=== PATIENT | female | born 1995 | race Caucasian/White ===

== ENCOUNTER → 2023-02-14 09:12 | Outpatient (CLI) | payer BC, SELFPAY ==
[2023-02-15 09:23] LABS: Progesterone 9.4 ng/mL (.)
== END ==
PROVIDERS: PCP Nurse Practitioner Family; Visit Provider Obstetrics & Gynecology
DX: Z34.91 Encounter for supervision of normal pregnancy, unspecified, first trimester (principal); Z3A.09 9 weeks gestation of pregnancy
CPT/HCPCS: 36415; 84144; 84702

== ENCOUNTER → 2023-02-21 15:20 | Outpatient (CLI) | payer BC, SELFPAY ==
[2023-02-21 16:26] LABS: Basophils % 0.1 % (0.1-2.0); Eosinophils # 0.2 K/mm3 (0.0-0.4); Eosinophils % 1.5 % (0.1-12.0); Hematocrit 38.3 % (37.0-47.0); Hemoglobin 12.1 g/dL (12.2-16.2); Lymphocytes # 2.2 K/mm3 (0.7-4.5); Lymphocytes % 19.5 % (10-50); Mean Corpuscular HGB Conc 31.5 g/dL (31.8-35.4); Mean Corpuscular Volume 82.5 fl (81-99); Mean Platelet Volume 7.3 fl (7.4-10.4); Monocytes # 0.6 K/mm3 (0.1-1.0); Monocytes % 4.8 % (1.7-9.3); Neutrophils # 8.4 K/mm3 (1.8-7.8); Platelet Count 280 K/mm3 (142-424); Red Blood Count 4.65 M/mm3 (4.20-5.40); Red Cell Distribution Width 14.3 % (11.5-17.5); White Blood Count 11.4 K/mm3 (4.8-10.8)
[2023-02-23 12:50] LABS: Rapid Plasma Reagin Ab Titer Non Reactive (NonRea<1:1)
[2023-03-03 12:09] LABS: HIV Screen 4th Generation wRfx Non Reactive; Hepatitis B Surface Antigen Negative; Hepatitis C Antibody Non Reactive
== END ==
PROVIDERS: PCP Nurse Practitioner Family; Visit Provider Obstetrics & Gynecology
DX: Z34.91 Encounter for supervision of normal pregnancy, unspecified, first trimester (principal); Z3A.10 10 weeks gestation of pregnancy
CPT/HCPCS: 36415; 85025; 86593; 86703; 86762; 86850; 87086; 87340; 87380; G0432

== ENCOUNTER → 2023-02-21 23:12 | Outpatient (CLI) | payer BC, SELFPAY | PROVIDERS: PCP Nurse Practitioner Family; Visit Provider Obstetrics & Gynecology | DX: Z34.91 Encounter for supervision of normal pregnancy, unspecified, first trimester (principal) ==

== ENCOUNTER → 2023-03-24 07:54 | Outpatient (CLI) | payer BC, SELFPAY ==
[2023-03-24 18:13] LABS: Collection Time,Urine 24 hours
[2023-03-24 18:14] LABS: Creatinine 24 Hour,Urine 903 mg/24hr (630-2500); Total Volume,Urine 2100 mL (600-1600)
[2023-03-24 18:16] LABS: Patient Height,Urine 61 inches
[2023-03-24 18:57] LABS: Total Protein 24 Hour,Urine 315 mg/24 hr (40-90)
[2023-03-24 18:58] LABS: Creatinine,Urine Random 43 mg/dL (Not Estab.)
== END ==
PROVIDERS: PCP Nurse Practitioner Family; Visit Provider Obstetrics & Gynecology
DX: O10.919 Unspecified pre-existing hypertension complicating pregnancy, unspecified trimester (principal); Z3A.14 14 weeks gestation of pregnancy
CPT/HCPCS: 82575; 84155

== ENCOUNTER → 2023-03-25 07:52 | Outpatient (CLI) | payer BC, SELFPAY | PROVIDERS: PCP Nurse Practitioner Family; Visit Provider Obstetrics & Gynecology | DX: O10.919 Unspecified pre-existing hypertension complicating pregnancy, unspecified trimester (principal) ==

== ENCOUNTER → 2023-05-02 12:48 | Outpatient (CLI) | payer BC, SELFPAY ==
--- NOTE | 2023-05-02 12:48 | US_ITS ---
PROCEDURE: US OB /MATERNAL DETAIL CLINICAL INDICATION: 20 week anatomy scan COMPARISON: No exams were available for comparison FINDINGS: Transabdominal sonographic images of the pelvis were obtained. From her established due date she is 20 weeks 2 days. Single viable intrauterine gestation. Cephalic position. Placenta: Posteriorplacenta grade 1. There is an average amount of fluid. MVP 7.27 cm. The cervix appears satisfactory. Closed and measuring 3.8 cm in length. Complete survey performed and was unremarkable on the submitted images as in PACS. No discrete anomalies identified on survey imaging by technologist. Active fetus. Three-vessel cord with satisfactory umbilical cord insertion. 4- chamber heart noted. Situs, aortic arch, LVOT, RVOT, three-vessel view appear normal. Survey of brain & ventricles Unremarkable. Thalamus, cerebellum, cisterna magna, choroid plexus appear normal. Face and neck survey unremarkable. Profile, nasion, lips and nose appeared normal. Diaphragm and chest views unremarkable. Abdomen: Both kidneys noted and unremarkable. Stomach and bladder noted and satisfactory. Spine: Survey of the spine satisfactory with no anomalies identified nor imaged. Cervical, thoracic and lower spine appear normal. Both arms and legs noted. Amniotic Fluid: Adequate. Measurements: Average ultrasound age 20weeks 3days. Estimated due date by ultrasound age 0409/16/2023. Estimated weight 346g BPD = 20weeks 3days HC = 20weeks 1day AC = 20weeks 4days FL = 20weeks 1day Growth Percentile= 47 Heart Rate = 158bpm Cerebellum = 19weeks 6days Humerus = 20weeks 0 days HC/AC is 1.15 FL/BPD is 0.68 FL/AC is 0.21 IMPRESSION: 1. Viable fetus in the cephalic presentation with a posterior placenta grade 1. 2. The fluid is within normal limits. 3. Anatomical scan appears normal. 4. biometry is consistent with the dates. Dictated by: Yves Pascual MD 05/04/2023 12:04 Yves Pascual MD in [place] 05/04/2023 12:04
== END ==
LOC: RAD 12:48
PROVIDERS: PCP Nurse Practitioner Family; Visit Provider Obstetrics & Gynecology
DX: Z34.92 Encounter for supervision of normal pregnancy, unspecified, second trimester (principal); Z3A.20 20 weeks gestation of pregnancy
CPT/HCPCS: 76811

== ENCOUNTER → 2023-06-13 10:22 | Outpatient (CLI) | payer BC, SELFPAY ==
[2023-06-13 10:56] LABS: Eosinophils # 0.1 K/mm3 (0.0-0.4); Eosinophils % 0.7 % (0.1-12.0); Hematocrit 32.9 % (37.0-47.0); Hemoglobin 11.3 g/dL (12.2-16.2); Mean Corpuscular HGB Conc 34.2 g/dL (31.8-35.4); Mean Corpuscular Hemoglobin 26.5 pg (27.0-31.2); Mean Corpuscular Volume 77.5 fl (81-99); Mean Platelet Volume 7.9 fl (7.4-10.4); Monocytes # 0.6 K/mm3 (0.1-1.0); Monocytes % 4.4 % (1.7-9.3); Neutrophils # 10.3 K/mm3 (1.8-7.8); Neutrophils % 79.8 % (37.0-80.0); Platelet Count 245 K/mm3 (142-424); Red Blood Count 4.24 M/mm3 (4.20-5.40); Red Cell Distribution Width 15.4 % (11.5-17.5)
[2023-06-13 11:01] LABS: Glucose,Fasting 130 mg/dl (74-100)
[2023-06-13 12:17] LABS: Glucose 1 Hour 173 mg/dL (74-100)
== END ==
LOC: LAB 10:23
PROVIDERS: PCP Nurse Practitioner Family; Visit Provider Obstetrics & Gynecology
DX: Z34.92 Encounter for supervision of normal pregnancy, unspecified, second trimester (principal); Z3A.25 25 weeks gestation of pregnancy
CPT/HCPCS: 82951; 85025

== ENCOUNTER 2023-06-20 08:26 | Outpatient (CLI) | payer BC, SELFPAY ==
[2023-06-20 08:55] LABS: Glucose,Fasting 104 mg/dl (74-100)
[2023-06-20 10:17] LABS: Glucose 1 Hour 212 mg/dL (74-100)
[2023-06-20 11:17] LABS: Glucose 2 Hour 178 mg/dL (74-100)
[2023-06-20 13:01] LABS: Glucose 3 Hour 135 mg/dL (74-100)
== END 2023-06-20 23:59 ==
LOC: LAB 08:27
PROVIDERS: PCP Nurse Practitioner Family; Visit Provider Obstetrics & Gynecology
DX: Z34.92 Encounter for supervision of normal pregnancy, unspecified, second trimester (principal)
CPT/HCPCS: 36415; 82951

== ENCOUNTER 2023-07-01 09:01 | Emergency (ER) | payer BC, SELFPAY ==
[2023-07-01 09:10] VITALS: BP 143/88; PULSE 94; RESP 22; TEMP 36.8; O2SAT 99; BMI 53.3
--- NOTE | 2023-07-01 09:17 | XR_ITS ---
FINAL REPORT CLINICAL HISTORY: fall yesterday. injury to greater toe. FINDINGS: 3 views of the right foot were obtained. There is no acute fracture or dislocation. The joint spaces are intact. The soft tissues are unremarkable. IMPRESSION: No acute process. Reviewed, Interpreted and Dictated by Peter Harvey III, MD Transcribed by Silvano Pickard Authenticated and [facility]
--- NOTE | 2023-07-01 09:42 | EXP.UTC ---
Discharge Plan Disposition Patient Disposition: Home, Self-Care Condition: Good Prescriptions Prescriptions: No Action Gummies 400 mcg-35 mg- 25 mg-5 mg tablet,chewable 1 tab PO DAILY levocetirizine 5 mg tablet 5 mg PO HS aspirin 81 mg tablet,delayed release (DR/EC) 81 mg PO DAILY (DME) blood-glucose meter [Accu-Chek Guide Glucose Meter] Misc See Rx Instructions .Route Qty: 1 0RF Rx Instructions: As directed (DME) Accu-Chek Guide test strips Strip See Rx Instructions .Route Qty: 100 0RF Rx Instructions: Test 4 times a day (DME) lancets [Accu-Chek Softclix Lancets] Misc See Rx Instructions .Route Qty: 200 0RF Rx Instructions: test 4 times a day ferrous sulfate [iron] 325 mg (65 mg iron) Tablet 325 mg PO DAILY Trelegy Ellipta 200-62.5-25 mcg blister with device 1 ea inhalation DAILY Patient Comments: INHALE 1 PUFF BY MOUTH DIRECTED ONCE A DAY Referrals Follow up/Referrals: aMdai Royal DPM [Staff Physician] - See instructions Sol Mendoza APRN [Primary Care Provider] - See instructions Activity Restrictions/Add. Instructions Additional Instructions/Restrictions: *RICE, Rest the extremity, Ice 15-20 minutes 3-4 times daily, Compress- wear the pau wrap as discussed as much as possible to help reduce swelling and pain, Elevate the extremity when at rest *eloy tape and post op shoe is for support and help control swelling, Be sure that is not to tight but not to loose either *Elevate when resting? Tylenol for pain if your OBGYN has said that you can take it Immediately follow up with your family doctor for new or worsening of symptoms, or no noticeable improvement over the next 3-5 days Clinical Impressions Clinical Impression: Contusion of toe Qualifiers: Encounter type: initial encounter Toe: great toe Damage to nail status: without damage Laterality: right Qualified Code(s): S90.111A - Contusion of right great toe without damage to nail, initial encounter Instructions Patient Instructions: How To Perform RICE (Rest, Ice, Compress, Elevate), How to Eloy Tape Discharge ED Provider: Julia Neal [facility] [place] General Stated complaint: right foot pain had a fall Mode of Arrival: Ambulatory Source of Information: Patient Limitations: No Limitations Time Seen by Provider: 07/01/23 09:15 Description of Symptoms (Recalled from Triage Doc. by RN): PATIENT STATES SHE SLIPPED AND FELL YESTERDAY AND THINKS SHE MAY HAVE BROKEN A TOE ON HER RIGHT FOOT HEENT Symptoms (Recalled from RN notes): No Resp Symptoms (Recalled from RN notes): No Skin Symptoms (Recalled from RN notes): No MS Symptoms (Recalled from RN notes): Yes Functional Status (Recalled from RN notes): WNL History of Present Illness Provider Complaint: Patient states that she is 7mths OB and she slipped yesterday and hit her right great toe against a brick wall States that since then she has been having pain, swelling and bruising to her right great toe and came in this morning wanting to get an xray to see if it is broken Denies any other injury Related Data Home Medications Medication Instructions Recorded Confirmed PNV 153-FA 400 mcg-om3 35 mg-dha 1 tab PO DAILY 02/21/23 07/01/23 25 mg-epa 5 mg-fish oil chew tablet ( Gummies) levocetirizine 5 mg tablet 5 mg PO HS 04/11/23 07/01/23 aspirin 81 mg tablet,delayed 81 mg PO DAILY 05/06/23 07/01/23 release ferrous sulfate 325 mg (65 mg 325 mg PO DAILY 07/01/23 07/01/23 iron) tablet (iron) fluticasone fur. 200 mcg-umeclid 1 ea inhalation DAILY 07/01/23 07/01/23 62.5 mcg-vilant 25 mcg inhalat.powder (Trelegy Ellipta) Previous Rx's Medication Instructions Recorded blood-glucose meter (Accu-Chek #1 ea 06/23/23 Guide Glucose Meter) blood sugar diagnostic (Accu-Chek #100 ea 06/25/23 Guide test strips) lancets (Accu-Chek Softclix #200 ea 06/25/23 Lancets) Allergies Allergy/AdvReac Type Severity Reaction Status Date / Time No Known Allergies Allergy Verified 07/01/23 09:42 Worker's Comp Is this a Worker's Comp case?: No [facility] Disclaimer: The information contained in this section may have been updated after the patient was seen, as this information can be updated by other users. Medical History Asthma Chronic hypertension affecting Surgical History History of wisdom tooth extraction Hx of tonsillectomy Family History Grandmother Cancer Ovarian Father Hypertension Cancer Colon Social History Smoking Status: Never smoker alcohol intake: current substance use type: denies use current occupational status: employed Travel in the last 8 weeks: None ROS Obtained: Yes All systems reviewed & no additional complaints except as documented and Yes Systems reviewed as appropriate & no additional complaints except as documented Constitutional Constitutional: Reports system reviewed and no additional complaints, except as documented and Reports as per HPI Respiratory Respiratory: Reports system reviewed and no additional complaints, except as documented and Reports as per HPI Gastrointestinal Gastrointestingal: Reports system reviewed and no additional complaints, except as documented and as per HPI Musculoskeletal Musculoskeletal: Reports system reviewed and no additional complaints, except as documented and Reports as per HPI Comments: swelling, bruising and pain to right great toe Physical Exam General General appearance: alert and in no apparent distress Respiratory Respiratory exam: Present normal lung sounds bilaterally; Absent respiratory distress or wheezes Cardiovascular Cardiovascular exam: Present regular rate, normal rhythm and normal heart sounds Expanded Lower Extremity Exam Right: Foot/toe exam: Present tenderness, swelling and ecchymosis Top foot image: 1. bruising and mild swelling noted Gait: observed and normal Neurological Exam Neurological exam: Present alert, oriented X3 and normal gait Medical Decision Making Ahsan Inquiry Pt receiving controlled substance: No Ahsan was queried for this patient: No Vital Signs: 07/01/23 09:10 Temperature 98.2 F Temperature Source Oral Pulse Rate [Left Brachial] 94 H Respiratory Rate 22 Blood Pressure [Left Arm] 143/88 H Blood Pressure Mean [Left Arm] 106 Blood Pressure Source [Left Arm] Automatic Cuff Blood Pressure Position [Left Arm] Sitting 02 Sat by Pulse Oximetry 99 Oxygen Delivery Method Room Air Orders (Tests/Meds): ORDERS Category Date Time Status Foot XR right minimum 3 views [XR foot RT min 3V] Stat Exams 07/01/23 09:17 Ordered Radiology Data #1: Image(s): Foot/Toes Image Reviewed: Yes I reviewed the patient's radiology image Preliminary Findings: Normal/NAD Medical Decision Narrative: Shaheed is 7mths OB requesting xray of right foot after hitting her right great toe against a brick wall yesterday Patient educated on risks associated with exposure to radiation to unborn child and and she is still requesting xray and to be shielded understands risks and still wants to do xray Procedures Orthopedic Splinting/Casting Injury #1: Side: right Lower Extremity Injury Location: toe Lower Extremity Immobilizer: post-op shoe, eloy tape and applied by nurse/dr carranza Post Cast/Splinting Neuro Status: intact and no change Post Cast/Splinting Vasc Status: intact and no change
[2023-07-01 09:56] VITALS: BP 143/88; PULSE 94; RESP 22; TEMP 36.8; O2SAT 99
--- NOTE | 2023-07-01 10:04 | PC.NURSE ---
RIGHT GREAT TOE LYDIA-TAPED TO 4TH TOE AND POST-OP SHOE APPLIED
== END 2023-07-01 10:08 | disposition home or self-care (01) ==
PROVIDERS: Emergency Provider Nurse Practitioner; PCP Nurse Practitioner Family
DX: O26.893 Other specified pregnancy related conditions, third trimester (principal); S90.111A Contusion of right great toe without damage to nail, initial encounter; Z3A.29 29 weeks gestation of pregnancy; W23.2XXA Caught, crushed, jammed or pinched between a moving and stationary object, initial encounter
CPT/HCPCS: 73630; 99204; 99212; G0463

== ENCOUNTER 2023-07-11 15:08 | Outpatient (CLI) | payer BC, SELFPAY ==
[2023-07-11 15:33] LABS: Basophils # 0.1 K/mm3 (0-0.2); Basophils % 0.4 % (0.1-2.0); Eosinophils # 0.1 K/mm3 (0.0-0.4); Eosinophils % 0.6 % (0.1-12.0); Hematocrit 33.6 % (37.0-47.0); Hemoglobin 11.3 g/dL (12.2-16.2); Lymphocytes # 2.3 K/mm3 (0.7-4.5); Mean Corpuscular HGB Conc 33.7 g/dL (31.8-35.4); Mean Corpuscular Volume 77.2 fl (81-99); Mean Platelet Volume 7.8 fl (7.4-10.4); Monocytes # 0.6 K/mm3 (0.1-1.0); Monocytes % 4.8 % (1.7-9.3); Neutrophils # 9.9 K/mm3 (1.8-7.8); Neutrophils % 76.2 % (37.0-80.0); Platelet Count 266 K/mm3 (142-424); Red Blood Count 4.36 M/mm3 (4.20-5.40); Red Cell Distribution Width 15.6 % (11.5-17.5)
[2023-07-11 15:41] LABS: Fibrinogen 576 mg/dL (229.9-363.5); Prothrombin Time 10.8 seconds (10.1-12.5)
[2023-07-11 16:49] LABS: Alanine Aminotransferase 27 U/L (12-78); Anion Gap 11.9 mEq/L (5-15); Aspartate Amino Transferase 27 U/L (14-36); Blood Urea Nitrogen 6 mg/dl (7-17); Calcium 9.1 mg/dl (8.4-10.2); Carbon Dioxide 22 mmol/L (22.0-30.0); Chloride 107 mmol/L (98-107); Estimated Glomerular Filt Rate 146 ml/min (>60); GFR (African American) 177 ML/MIN (>60); Glucose 111 mg/dl (74-100); Potassium 3.9 mmoL/L (3.5-5.1); Sodium 137 mmol/L (136-145); Uric Acid 4.3 mg/dl (2.5-6.2)
== END 2023-07-11 23:59 ==
LOC: LAB 15:09
PROVIDERS: PCP Nurse Practitioner Family; Visit Provider Obstetrics & Gynecology
DX: O24.419 Gestational diabetes mellitus in pregnancy, unspecified control (principal)
CPT/HCPCS: 36415; 80048; 84450; 84460; 84550; 85025; 85384; 85610; 85730

== ENCOUNTER 2023-07-18 12:39 | Outpatient (CLI) | payer BC, SELFPAY ==
--- NOTE | 2023-07-18 12:40 | US_ITS ---
PROCEDURE: US OB BIOPHYSICAL PROFILE CLINICAL INDICATION: Chronic Hypertension affecting COMPARISON: No exams were available for comparison FINDINGS: Transabdominal sonographic images of the uterus were obtained. From her established due date she is 31weeks 2days. The following parameters are obtained: Viable Fetus in the cephalic presentation with a fundal placenta grade 1. Average ultrasound age is 31weeks 5days Estimated weight 1,779g, 3 lb 15 oz. Cervix measures 3.6 cm Measurements: heart Rate = 150bpm BPD = 31weeks 5days HC = 32weeks 1day AC = 31weeks 3days FL = 31weeks 3days HC/AC is 1.07 FL/BPD is 0.76 FL/AC is 0.22 45 percentile Amniotic fluid index: 11.71cm, MVP 4.19 cm. Qualitative AFV:2 Breathing movements: 2 Gross Body Movements: 2 Tone: 2 Biophysical profile score: 8 No obvious anomalies evident.Kidneys, diaphragm, four-chamber heart, profile, nasion, three-vessel cord appear normal. IMPRESSION: 1. Viable fetus in the cephalic presentation with a fundal placenta grade 1. 2. The fluid is within normal limits with an amniotic fluid index of 11.71 cm, MVP 4.19 cm. 3. Biophysical profile 01/21 with good breathing movement and movement seen. 4. There has been good interval growth with the fetus currently 45th percentile. Dictated by: Yves Pascual MD 07/19/2023 06:39 Yves Pascual MD in [place] 07/19/2023 06:39
== END 2023-07-18 23:59 ==
LOC: RAD 12:40
PROVIDERS: PCP Nurse Practitioner Family; Visit Provider Obstetrics & Gynecology
DX: O10.913 Unspecified pre-existing hypertension complicating pregnancy, third trimester (principal); Z3A.31 31 weeks gestation of pregnancy
CPT/HCPCS: 76816; 76819

== ENCOUNTER 2023-07-30 13:57 | Outpatient (CLI) | payer BC, SELFPAY ==
--- NOTE | 2023-07-30 13:57 | US_ITS ---
PROCEDURE: US OB BIOPHYSICAL PROFILE CLINICAL INDICATION: BPP/ Chronic hypertension affecting COMPARISON: No exams were available for comparison FINDINGS: Transabdominal sonographic images of the uterus were obtained. From her established due date she is 33weeks 0 days. The following parameters are obtained: Viable Fetus in the cephalic presentation with a lateral posterior placenta grade 2. Cervix measures 3.8 cm. Measurements: heart Rate = 139bpm Amniotic fluid index: 11.08cm, MVP 4.8 cm. Qualitative AFV:2 Breathing movements: 2 Gross Body Movements: 2 Tone: 2 Biophysical profile score: 8 No obvious anomalies evident.Kidneys, profile, nasion, four-chamber heart, three-vessel cord appear normal. IMPRESSION: 1. Viable fetus in the cephalic presentation with a lateral posterior placenta grade 2. 2. The fluid is within normal limits with an amniotic fluid index of 11.08 cm, MVP 4.8 cm. 3. Biophysical profile is 8/8 with good breathing movement and movement seen. 4. Limited anatomical scan appears normal. Dictated by: Yves Pascual MD 07/30/2023 15:35 Yves Pascual MD in [place] 07/30/2023 15:35
== END 2023-07-30 23:59 ==
LOC: RAD 13:57
PROVIDERS: PCP Nurse Practitioner Family; Visit Provider Obstetrics & Gynecology
DX: O10.913 Unspecified pre-existing hypertension complicating pregnancy, third trimester (principal); Z3A.33 33 weeks gestation of pregnancy
CPT/HCPCS: 76819

== ENCOUNTER 2023-08-05 02:50 | Inpatient (IN) | payer BC, SELFPAY ==
[2023-08-05 01:44] VITALS: BMI 51.3
[2023-08-05 02:00] VITALS: BP 145/79; PULSE 101; RESP 18; TEMP 37.1; O2SAT 96; BMI 51.3
[2023-08-05 02:09] LABS: Appearance,Urine CLEAR (Clear); Bilirubin,Urine Negative (Negative); Blood, Urine 2+ (Negative); Color,Urine YELLOW (Yellow); Glucose,Urine (UA) Negative (Negative); Ketones,Urine 2+ (Negative); Leukocyte Esterase,Urine 2+ (Negative); Microscopic, Urine URINE MICROSCOPIC (MICROSCOPIC); Nitrate,Urine Negative (Negative); Protein,Urine Negative (Negative); Urobilinogen,Urine 0.2 EU/dl (0.2)
[2023-08-05] MEDS: NIFEdipine 10MG CAPSULE 10 MG PO (02:16)
[2023-08-05 02:21] LABS: Bacteria,Urine 1+ /lpf
[2023-08-05 02:32] LABS: Amphetamine/Metha Screen,Urine Negative ng/ml (<1000); Barbiturates Screen,Urine Negative ng/ml (<200)
[2023-08-05 02:33] LABS: Benzodiazepines Screen,Urine Negative ng/ml (<200)
[2023-08-05 02:34] LABS: Cannabinoid Screen,Urine Negative ng/ml (<50)
[2023-08-05 02:35] LABS: Cocaine Screen,Urine Negative ng/ml (<300); Methadone Screen,Urine Negative ng/ml (<300)
[2023-08-05 02:36] LABS: Opiate Screen,Urine Negative ng/ml (<300); Phencyclidine Screen,Urine Negative ng/ml (<25)
[2023-08-05] MEDS: BETAMETHASONE ACET/PHOS 6MG/ML 5ML MDV 12 MG IM (02:36)
[2023-08-05] MEDS: LACTATED RINGERS 1000ML 1,000 ML 999 ML IV (02:37)
[2023-08-05 02:40] LABS: Fetal Membrane Rupture (Rapid) Positive (Negative)
[2023-08-05] MEDS: BUTORPHANOL TARTRATE 1 MG/ML VIAL IV (02:50)
[2023-08-05] MEDS: AMPICILLIN SODIUM 2 GM in 0.9 % SODIUM CHLORIDE 100 ML IV (02:59)
--- NOTE | 2023-08-05 03:08 | P.HPDS_ITS ---
General Admission date:: 08/05/23 Discharge date: 08/05/23 *Admission Date: 08/05/23 *Chief complaint: painful uterine contractions *History of present illness: Mrs Drea Peterson is a 27 yo at 33w6d, by LMP and confirmed by 10 week ultrasound, who presents to [facility] Labor and Delivery with complaint of regular, painful contractions. She admits contractions started around lunchtime yesterday. She initially thought they were [place] contractions. However, as the evening progressed contractions became more painful. She arrived to L&D around 0145 this morning. Upon arrival to L&D, cervical exam was 3/60/-3 posterior. NST was category 2, moderate variability, no accelerations, + intermittent variable decelerations. [place] q 2-3 minutes. While in triage aroound 0200 she started leaking fluid. Amnisure was positive. complicated by CHTN on Labetalol 200 mg BID, GDMA2 on insulin glargine 20 mg nightly at bedtime, asthma well controlled. History of x 1 at 37 weeks. She states she underwent induction of labor at 37 weeks for GHTN. [facility] Disclaimer: The information contained in this section may have been updated after the patient was seen, as this information can be updated by other users. Medical History (Updated 08/05/23 @ 03:30 by Nevaeh Bragg DO) Asthma Chronic hypertension affecting Maternal obesity affecting , antepartum with 33 completed weeks gestation labor in third trimester SROM (spontaneous rupture of membranes) Surgical History History of wisdom tooth extraction Hx of tonsillectomy Family History Grandmother Cancer Ovarian Father Hypertension Cancer Colon Social History Smoking Status: Never smoker alcohol intake: current substance use type: denies use current occupational status: employed Travel in the last 8 weeks: None Review of Systems Review of Systems Review of systems:: pertinent systems reviewed and negative unless documented below *Genitourinary Comments: + painful contractions Exam Data for Last 24 hours Vital signs and Labs for Last 24 Hours: Temp Pulse Resp BP Pulse Ox O2 Del Method 98.8 F 101 H 18 145/79 H 96 Room Air 08/05/23 02:00 08/05/23 02:00 08/05/23 02:00 08/05/23 02:00 08/05/23 02:00 08/05/23 02:00 Laboratory Results - last 24 hr 08/05/23 01:49: Urine Color Yellow, Urine Appearance Clear, Urine pH 7.0, Ur Specific [place] 1.010, Urine Protein Negative, Urine Glucose (UA) Negative, Urine Ketones 2+, Urine Blood 2+, Urine Nitrate Negative, Urine Bilirubin Negative, Urine Urobilinogen 0.2, Ur Leukocyte Esterase 2+ A, Urine RBC 5-10, Urine WBC 10-20, Ur Squamous Epith Cells 3-5, Urine Bacteria 1+, Urine Opiates Screen Negative, Urine Methadone Screen Negative, Ur Barbituates Screen Negative, Ur Phencyclidine Scrn Negative, Ur Amphetamines Screen Negative, U Benzodiazepines Scrn Negative, Urine Cocaine Screen Negative, U Marijuana (THC) Screen Negative 08/05/23 02:24: Membrane Rupture Positive A I & O for Last 24 hours: Intake & Output 08/02/23 08/03/23 08/04/23 08/05/23 23:59 23:59 23:59 23:59 Weight 272 lb Constitutional Constitutional: no acute distress, obese and cooperative *Routine HEENT Exam Head: Present normocephalic and atraumatic Eye: Absent conjunctivae pink ENT: Present mucous membranes moist *Routine Neck Exam Neck: Present full ROM *Routine Respiratory Exam Respiratory: Present CTA bilaterally and normal respiratory effort *Routine Cardiovascular Exam Cardiovascular: Present RRR *Routine Abdominal Exam Abdominal: Present soft (Gravid); Absent tenderness *Routine Rectal Exam Rectal:: deferred *Routine Genitalia Exam Genitalia:: normal female *Routine Extremities Exam Extremities: Present full ROM; Absent edema or calf tenderness *Routine Neurological Exam Neurological: Present alert, moving all extremities and normal speech Routine Psychiatric Exam Psychiatric: Present normal affect and cooperative Meds Home Medications and Allergies Home Medications Medication Instructions Recorded Confirmed Type PNV 153-FA 400 mcg-om3 35 mg-dha 1 tab PO DAILY 02/21/23 07/30/23 History 25 mg-epa 5 mg-fish oil chew tablet ( Gummies) levocetirizine 5 mg tablet 5 mg PO HS 04/11/23 07/30/23 History aspirin 81 mg tablet,delayed 81 mg PO DAILY 05/06/23 07/30/23 History release blood-glucose meter (Accu-Chek #1 ea 06/23/23 07/30/23 Rx Guide Glucose Meter) ferrous sulfate 325 mg (65 mg 325 mg PO DAILY 07/01/23 07/30/23 History iron) tablet (iron) fluticasone fur. 200 mcg-umeclid 1 ea inhalation DAILY 07/01/23 07/30/23 History 62.5 mcg-vilant 25 mcg inhalat.powder (Trelegy Ellipta) blood sugar diagnostic (Accu-Chek #100 ea 07/11/23 07/30/23 Rx Guide test strips) labetalol 200 mg tablet 200 mg PO BID #60 tabs 07/11/23 07/30/23 Rx lancets (Accu-Chek Softclix #200 ea 07/11/23 07/30/23 Rx Lancets) insulin glargine 100 unit/mL (3 15 unit SQ HS 07/18/23 07/30/23 History mL) subcutaneous pen New Prescriptions to Start Prescriptions: Allergies Allergy/AdvReac Type Severity Reaction Status Date / Time No Known Allergies Allergy Verified 07/30/23 15:20 Hospital Course Hospital Course Hospital Course: Mrs Drea Peterson is a 27 yo at 33w6d, by LMP and confirmed by 10 week ultrasound, who presents to [facility] Labor and Delivery with complaint of regular, painful contractions. She admits contractions started around lunchtime yesterday. She initially thought they were [place] contractions. However, as the evening progressed contractions became more painful. She arrived to L&D around 0145 this morning. Upon arrival to L&D, cervical exam was 3/60/-3 posterior. NST was category 2, moderate variability, no accelerations, + intermittent variable decelerations. [place] q 2-3 minutes. While in triage, around 0200, she started leaking fluid. Amnisure was positive. complicated by CHTN on Labetalol 200 mg BID, GDMA2 on insulin glargine 20 mg nightly at bedtime, asthma well controlled. She has had good care. History of x 1 at 37 weeks secondary to induction of labor for GHTN. She was given IV fluid bolus, procardia 10 mg for contractions, Celestone 12 mg and Ampicillin 2 grams. She was also given Stadol 1 mg for pain. Repeat cervical exam /3, soft, posterior. Discussed labor and rupture of membranes with Dr. Knowles at . Dr Knowles accepted transfer. Results Data Completed and Pending Labs on day of discharge: Labs from last 24 hours 08/05/23 08/05/23 02:24 01:49 Urine Color Yellow Urine Appearance Clear Urine pH 7.0 Ur Specific [place] 1.010 Urine Protein Negative Urine Glucose (UA) Negative Urine Ketones 2+ Urine Blood 2+ Urine Nitrate Negative Urine Bilirubin Negative Urine Urobilinogen 0.2 Ur Leukocyte Esterase 2+ A Urine RBC 5-10 Urine WBC 10-20 Ur Squamous Epith Cells 3-5 Urine Bacteria 1+ Membrane Rupture Positive A Urine Opiates Screen Negative Urine Methadone Screen Negative Ur Barbituates Screen Negative Ur Phencyclidine Scrn Negative Ur Amphetamines Screen Negative U Benzodiazepines Scrn Negative Urine Cocaine Screen Negative U Marijuana (THC) Screen Negative DS: Diagnosis Discharge Diagnosis (1) with 33 completed weeks gestation: Status: Acute Code(s): Z3A.33 - 33 weeks gestation of (2) labor in third trimester: Status: Acute Code(s): O60.03 - labor without delivery, third trimester Qualifiers: labor delivery status: without delivery Qualified Code(s): O60.03 - labor without delivery, third trimester (3) SROM (spontaneous rupture of membranes): Status: Acute (4) Chronic hypertension affecting : Status: Acute Code(s): O10.919 - Unspecified pre-existing hypertension complicating , unspecified trimester (5) Gestational diabetes mellitus: Status: Acute Code(s): O24.419 - Gestational diabetes mellitus in , unspecified control Qualifiers: Gestational diabetes mellitus control: insulin-controlled Trimester: third trimester Qualified Code(s): O24.414 - Gestational diabetes mellitus in , insulin controlled (6) Asthma affecting , antepartum: Status: Acute Code(s): O99.519 - Diseases of the respiratory system complicating , unspecified trimester; J45.909 - Unspecified asthma, uncomplicated (7) Maternal obesity affecting , antepartum: Status: Acute Code(s): O99.210 - Obesity complicating , unspecified trimester Qualifiers: Obesity type affecting : unspecified obesity Qualified Code(s): O99.210 - Obesity complicating , unspecified trimester Discharge Plan Disposition Patient Disposition: Xfer Short-Term Hosp Condition: Good Discharge Order Discharge Orders: Discharge Order (Routine); Ordered 08/05/23 Ordered By: Nevaeh Bragg Follow up Plan Prescriptions/Medication Reconciliation: Continued Gummies 400 mcg-35 mg- 25 mg-5 mg tablet,chewable 1 tab PO DAILY levocetirizine 5 mg tablet 5 mg PO HS aspirin 81 mg tablet,delayed release (DR/EC) 81 mg PO DAILY labetalol 200 mg tablet 200 mg PO BID Qty: 60 2RF (DME) Accu-Chek Guide test strips Strip See Rx Instructions .Route Qty: 100 2RF Rx Instructions: Test 4 times a day (DME) lancets [Accu-Chek Softclix Lancets] Misc See Rx Instructions .Route Qty: 200 2RF Rx Instructions: test 4 times a day insulin glargine 100 unit/mL (3 mL) insulin pen 15 unit SQ HS (DME) blood-glucose meter [Accu-Chek Guide Glucose Meter] Misc See Rx Instructions .Route Qty: 1 0RF Rx Instructions: As directed ferrous sulfate [iron] 325 mg (65 mg iron) Tablet 325 mg PO DAILY Trelegy Ellipta 200-62.5-25 mcg blister with device 1 ea inhalation DAILY Patient Comments: INHALE 1 PUFF BY MOUTH DIRECTED ONCE A DAY Problem Reconciliation Problems Reviewed?: Yes Patient Discharge Instructions ACTIVITY: Limited activity DIET: continue same diet Stand Alone Forms: Transfer Record Providers Primary Care Provider: Sol Mendoza Admit Provider: Nevaeh Bragg Attending Provider: Nevaeh Bragg
--- NOTE | 2023-08-05 03:25 | PC.NURSE ---
Active Medications Generic Name Dose Route Start Last Admin Trade Name Sergey PRN Reason Stop Dose Admin Ampicillin Sodium 2 gm/ Sodium 100 mls @ 200 mls/hr 08/05/23 03:00 08/05/23 02:59 Chloride IV 08/05/23 03:29 200 mls/hr ONCE ONE Administration Active Medications Ampicillin Sodium 2 gm/ Sodium (Chloride) 100 mls @ 200 mls/hr IV ONCE ONE Stop: 08/05/23 03:29 Last Admin: 08/05/23 02:59 Dose: 200 mls/hr lactated ringers @999ml/hr Iv once Last Admin: @0237 08/05/2023 Stadol 1mg Iv once Last admin @ 0250 08/05/23 celestone 12mg IM once Last admin @0236 08/05/23 niphedipine 10mg PO once last admin @0216 08/05/23
== END 2023-08-05 03:45 | disposition home or self-care (01) | DRG 832 ==
LOC: OBOUT 02:53 → OB 02:53
PROVIDERS: Admitting Provider Obstetrics & Gynecology; PCP Nurse Practitioner Family; Referring Provider Obstetrics & Gynecology; Visit Provider Obstetrics & Gynecology
DX: O47.03 False labor before 37 completed weeks of gestation, third trimester (principal); O10.913 Unspecified pre-existing hypertension complicating pregnancy, third trimester; Z3A.33 33 weeks gestation of pregnancy; O99.210 Obesity complicating pregnancy, unspecified trimester; O24.414 Gestational diabetes mellitus in pregnancy, insulin controlled
CPT/HCPCS: 59025; 80307; 81001; 84112; 87086; 96365; 96372; G0463; J0290; J0595

== ENCOUNTER 2023-08-14 18:53 | Emergency (ER) | payer BC, SELFPAY ==
--- NOTE | 2023-08-14 18:50 | ECG_ITS ---
APPROVED REPORT Exam: Resting ECG HR:64 bpm ECG Measurements Heart Rate 64 AXES AL 148 P 28 QRSd 106 QRS 52 QT 427 T 29 QTc 437 Conclusion SINUS RHYTHM WITH SINUS ARRHYTHMIA NORMAL ECG UNCONFIRMED REPORT Electronically signed by : Sunny Thomas MD 08/15/2023 19:30:57
--- NOTE | 2023-08-14 18:58 | ED_ITS ---
Discharge Plan Disposition Patient Disposition: Home, Self-Care Condition: Good Prescriptions Prescriptions: No Action labetalol 200 mg tablet 200 mg PO BID Patient Comments: TAKE ONE TABLET BY MOUTH TWICE A DAY fluticasone propionate [Flonase Allergy Relief] 50 mcg/actuation spray,suspension 2 spray INTRANASAL DAILY Patient Comments: [place] 2 spray into both nostrils once a day enoxaparin 40 mg/0.4 mL syringe 40 mg SQ DAILY insulin glargine [Lantus Solostar U-100 Insulin] 100 unit/mL (3 mL) insulin pen 10 unit SQ HS Patient Comments: 10 UNIT (0.1 ML) SUBCUTANEOUSLY AT BEDTIME NIGHTLY levocetirizine 5 mg tablet 5 mg PO DAILY Patient Comments: TAKE 1 TABLET BY MOUTH EVERY DAY Trelegy Ellipta 200-62.5-25 mcg blister with device 1 inh INHALATION DAILY Patient Comments: [place] 1 PUFF BY MOUTH DIRECTED ONCE A DAY Referrals Follow up/Referrals: Provider,Referral, MD [Primary Care Provider] - See instructions Activity Restrictions/Add. Instructions Additional Instructions/Restrictions: Please follow-up with PCP and REGULATORY AFFAIRS COORDINATOR as needed or sooner for worsening or change in symptoms or return to the emergency department Clinical Impressions Clinical Impression: Atypical chest pain Discharge ED Provider: Susana Martin HPI <BASILIO Galindo - Last Filed: 08/14/23 21:29> General Chief Complaint: Chest Pain Stated Complaint: chest pain Time Seen by Provider: 08/14/23 18:58 History of Present Illness HPI narrative: Patient presents for evaluation initially of chest pain . Patient is 9 days status post on twice daily dosing of Lovenox. Patient at baseline has a past medical history of morbid obesity, asthma, hypertension. Patient reports acute onset of left-sided chest pain that does not radiate and is located beneath her chest wall. He does not report radiation of the chest pain shortness of breath nausea vomiting diarrhea hemoptysis hematochezia melena hematemesis. There are no aggravating or relieving factors. She is not currently breast-feeding but is pumping as her child is in the NICU at the [facility]. Related Data Home Medications Medication Instructions Recorded Confirmed enoxaparin 40 mg/0.4 mL 40 mg SQ DAILY 08/14/23 08/14/23 subcutaneous syringe fluticasone fur. 200 mcg-umeclid 1 inh inhalation DAILY 08/14/23 08/14/23 62.5 mcg-vilant 25 mcg inhalat.powder (Trelegy Ellipta) fluticasone propionate 50 2 spray intranasal DAILY 08/14/23 08/14/23 mcg/actuation nasal spray,suspension (Flonase Allergy Relief) insulin glargine 100 unit/mL (3 10 unit SQ HS 08/14/23 08/14/23 mL) subcutaneous pen (Lantus Solostar U-100 Insulin) labetalol 200 mg tablet 200 mg PO BID 08/14/23 08/14/23 levocetirizine 5 mg tablet 5 mg PO DAILY 08/14/23 08/14/23 Allergies Allergy/AdvReac Type Severity Reaction Status Date / Time No Known Allergies Allergy Verified 07/30/23 15:20 PFSH <BASILIO Galindo - Last Filed: 08/14/23 21:29> PFS Disclaimer: The information contained in this section may have been updated after the patient was seen, as this information can be updated by other users. Medical History (Updated 08/14/23 @ 21:24 by BASILIO Galindo) Asthma Chronic hypertension affecting Maternal obesity affecting , antepartum with 33 completed weeks gestation labor in third trimester SROM (spontaneous rupture of membranes) Surgical History History of wisdom tooth extraction Hx of tonsillectomy Family History Grandmother Cancer Ovarian Father Hypertension Cancer Colon Social History Smoking Status: Unknown if ever smoked alcohol intake: current substance use type: denies use current occupational status: employed Travel in the last 8 weeks: None <BASILIO Galindo - Last Filed: 08/14/23 21:29> ROS Obtained: Yes Systems reviewed as appropriate & no additional complaints except as documented Physical Exam <BASILIO Galindo - Last Filed: 08/14/23 21:29> General General appearance: alert and in no apparent distress Head Head exam: atraumatic and normal inspection Eye Eye exam: Present normal appearance, PERRL and EOMI ENT ENT exam: Present normal exam, normal oropharynx and mucous membranes moist Neck Neck exam: Present normal inspection and full ROM; Absent lymphadenopathy Chest Chest inspection: Present normal inspection and symmetric chest wall rise; Absent tenderness, rash or abscess Respiratory Respiratory exam: Present normal lung sounds bilaterally; Absent wheezes or accessory muscle use Cardiovascular Cardiovascular exam: Present regular rate, normal rhythm and normal heart sounds Abdominal Exam Abdominal exam: Present soft, normal bowel sounds and other (Obese. Surgical site is clean dry and intact.); Absent tenderness, guarding or rebound Extremities Exam Extremities exam: Present normal inspection and full ROM; Absent tenderness or calf tenderness Neurological Exam Neurological exam: Present alert, oriented X3 and CN II-XII intact Psychiatric Psychiatric exam: Present normal affect and normal mood Skin Skin exam: Present warm, dry and normal color Lymphatic Lymphatic Findings: no adenopathy HEART Score <BASILIO Galindo - Last Filed: 08/14/23 21:29> HEART Score HEART Score assessment performed?: Yes History (anamnesis): Slightly suspicious ECG: Normal Age: <45 years Risk factors: 1-2 risk factors Troponin: </= normal limit HEART Score: 1 <Susana Martin DO - Last Filed: 08/15/23 00:07> HEART Score HEART Score: 1 Critical Care <BASILIO Galindo - Last Filed: 08/14/23 21:29> Critical Care Time Critical Care Time: No Medical Decision Making <BASILIO Galindo - Last Filed: 08/14/23 21:29> Medical Records Medical records reviewed: Yes I reviewed the patient's medical records. Ahsan Alves Pt receiving controlled substance: No Vital Signs Vital Signs: 08/14/23 19:03 08/14/23 22:18 Temperature 97.0 F L 98.2 F Temperature Source Oral Oral Pulse Rate 73 Pulse Rate [Right Brachial] 75 Respiratory Rate 16 15 Blood Pressure 142/76 H Blood Pressure [Right Arm] 153/62 H Blood Pressure Mean [Right Arm] 92 Blood Pressure Source Automatic Cuff Blood Pressure Source [Right Arm] Automatic Cuff Blood Pressure Position Sitting Blood Pressure Position [Right Arm] Sitting 02 Sat by Pulse Oximetry 98 Oxygen Delivery Method Room Air Room Air Lab Data Lab results reviewed: Yes I reviewed the patient's lab results. Labs: Lab Results 08/14/23 17:39: SARS-CoV-2 (PCR) Not detected, Influenza A Untype (PCR) Not detected, Influenza Type B (PCR) Not detected 08/14/23 18:56: WBC 13.2 H, RBC 4.20, Hgb 11.0 L, Hct 34.3 L, MCV 81.6, MCH 26.1 L, MCHC 32.0, RDW 15.8, Plt Count 362, MPV 7.9, Neut % (Auto) 69.2, Lymph % (Auto) 24.5, [place] % (Auto) 4.6, Eos % (Auto) 1.2, Baso % (Auto) 0.6, Neut # (Auto) 9.2 H, Lymph # (Auto) 3.2, [place] # (Auto) 0.6, Eos # (Auto) 0.2, Baso # (Auto) 0.1, Sodium 139, Potassium 3.9, Chloride 106, Carbon Dioxide 25, Anion Gap 11.9, BUN 16, Creatinine 0.80, Estimated Creat Clear 78, Estimated GFR 85, Est GFR ( Amer) 103, Glucose 89, Calcium 9.2, Magnesium 1.9, Total Bilirubin 0.3, AST 27, ALT 30, Alkaline Phosphatase 141 H, Troponin I < 0.01, Total Protein 6.9, Albumin 3.7, Globulin 3.2, Albumin/Globulin Ratio 1.2, Lipase 78 08/14/23 19:53: PT 11.3, INR 1.05, D-Dimer 0.65 H, Lactate 0.8 08/14/23 21:38: Troponin I < 0.01 08/14/23 18:56 08/14/23 18:56 Response Orders (Tests/Meds): ED MEDICATIONS Discontinued Medications Generic Name Dose Route Start Last Admin Trade Name Freq PRN Reason Stop Dose Admin Acetaminophen 1,000 mg 08/14/23 19:11 08/14/23 19:26 Acetaminophen 1,000mg/100ml Vial IV 08/14/23 19:12 1,000 mg ONCE ONE Administration Lactated Ringer's 1,000 mls @ 999 mls/hr 08/14/23 19:11 08/14/23 19:26 Lactated Ringer's 1000 Ml Bag IV 08/14/23 20:11 999 mls/hr .Q1H1M ONE Administration Iopamidol 75 ml 08/14/23 20:53 08/14/23 20:53 Iopamidol-370 (76%);100ml Bottle IV 08/14/23 20:54 75 ml ONCE ONE Administration Ketorolac Tromethamine 15 mg 08/14/23 19:11 08/14/23 19:26 Ketorolac 30mg/Ml Vial IV 08/14/23 19:12 15 mg ONCE ONE Administration Morphine Sulfate 2 mg 08/14/23 19:11 08/14/23 19:26 Morphine 2mg/Ml Syringe IV 08/14/23 19:12 2 mg ONCE ONE Administration Sodium Chloride 10 ml 08/14/23 20:53 08/14/23 20:53 Sodium Chloride 0.9% 10ml Syr (Rad Only) IV 09/13/23 20:52 10 ml NEEDED PRN Administration Maintain IV Site ORDERS Category Date Time Status CTA Chest [CT angio chest PE protocol] Stat Cat Scan 08/14/23 20:33 Completed Chest XR -- portable [XR chest portable] Stat Exams 08/14/23 19:11 Completed CBC w/Auto Diff [Complete Blood Count Auto Diff] Stat Lab 08/14/23 18:56 Completed CMP [Comprehensive Metabolic Panel] Stat Lab 08/14/23 18:56 Completed D-Dimer Stat Lab 08/14/23 19:53 Completed INR [Prothrombin Time INR] Stat Lab 08/14/23 19:53 Completed Lactic Acid Stat Lab 08/14/23 19:53 Completed Lipase Stat Lab 08/14/23 18:56 Completed Magnesium Stat Lab 08/14/23 18:56 Completed Rapid PCR Covid and Flu A/B Stat Lab 08/14/23 17:39 Completed Trop I [Troponin I] Stat Lab 08/14/23 18:56 Completed Troponin I Q3H Lab 08/14/23 21:38 Completed ECG initial [place] Routine Y 08/14/23 18:50 Completed MDM Narrative Medical Decision Narrative: In summary patient is a 27-year-old female who presents to the emergency department for evaluation of chest pain. Patient is hemodynamically stable upon arrival, afebrile. Physical exam shows a morbidly obese 27-year-old female who is in no acute distress. Evaluation of the superficial chest wall shows no obvious abscess erythema edema tenderness to palpation signs of mastitis. Pain is not reproducible on exam. Auscultation of chest shows clear breath sounds without evidence of adventitious sounds. Cardiovascular is normal to auscultation normal heart sounds no rubs murmurs gallops or thrills. Differential diagnosis includes ACS versus PE versus intestinal source or cause versus bacterial or viral respiratory tract infection. Initial workup will be conducted with hematologic labs CTA PE protocol respiratory swabs. Initial interventions include acetaminophen and Tylenol. Initial workup reviewed by me shows an elevated white count with left shift but negative lactate negative procalcitonin but normal EKG normal chest x-ray and normal troponin. Upon repeat evaluation patient had improvement of her chest pain after ministration of Toradol and acetaminophen. White count is elevated but patient has no evidence of infection and given 9 days not unexpected. My informal interpretation of the CTA PE protocol of her chest shows no evidence of thrombus no acute processes bilateral trace pleural effusions inferiorly. Given this appropriate for discharge home with instructions to follow-up with both her PCP and REGULATORY AFFAIRS COORDINATOR. Patient to return to ER for any worsening or change in her signs or symptoms. Patient verbalized understanding and agreed with plan <Susana Martin, DO - Last Filed: 08/15/23 00:07> Vital Signs Vital Signs: 08/14/23 19:03 08/14/23 22:18 Temperature 97.0 F L 98.2 F Temperature Source Oral Oral Pulse Rate 73 Pulse Rate [Right Brachial] 75 Respiratory Rate 16 15 Blood Pressure 142/76 H Blood Pressure [Right Arm] 153/62 H Blood Pressure Mean [Right Arm] 92 Blood Pressure Source Automatic Cuff Blood Pressure Source [Right Arm] Automatic Cuff Blood Pressure Position Sitting Blood Pressure Position [Right Arm] Sitting 02 Sat by Pulse Oximetry 98 Oxygen Delivery Method Room Air Room Air Lab Data Labs: Lab Results 08/14/23 17:39: SARS-CoV-2 (PCR) Not detected, Influenza A Untype (PCR) Not detected, Influenza Type B (PCR) Not detected 08/14/23 18:56: WBC 13.2 H, RBC 4.20, Hgb 11.0 L, Hct 34.3 L, MCV 81.6, MCH 26.1 L, MCHC 32.0, RDW 15.8, Plt Count 362, MPV 7.9, Neut % (Auto) 69.2, Lymph % (Auto) 24.5, [place] % (Auto) 4.6, Eos % (Auto) 1.2, Baso % (Auto) 0.6, Neut # (Auto) 9.2 H, Lymph # (Auto) 3.2, [place] # (Auto) 0.6, Eos # (Auto) 0.2, Baso # (Auto) 0.1, Sodium 139, Potassium 3.9, Chloride 106, Carbon Dioxide 25, Anion Gap 11.9, BUN 16, Creatinine 0.80, Estimated Creat Clear 78, Estimated GFR 85, Est GFR ( Amer) 103, Glucose 89, Calcium 9.2, Magnesium 1.9, Total Bilirubin 0.3, AST 27, ALT 30, Alkaline Phosphatase 141 H, Troponin I < 0.01, Total Protein 6.9, Albumin 3.7, Globulin 3.2, Albumin/Globulin Ratio 1.2, Lipase 78 08/14/23 19:53: PT 11.3, INR 1.05, D-Dimer 0.65 H, Lactate 0.8 08/14/23 21:38: Troponin I < 0.01 Response Orders (Tests/Meds): ED MEDICATIONS Discontinued Medications Generic Name Dose Route Start Last Admin Trade Name Freq PRN Reason Stop Dose Admin Acetaminophen 1,000 mg 08/14/23 19:11 08/14/23 19:26 Acetaminophen 1,000mg/100ml Vial IV 08/14/23 19:12 1,000 mg ONCE ONE Administration Lactated Ringer's 1,000 mls @ 999 mls/hr 08/14/23 19:11 08/14/23 19:26 Lactated Ringer's 1000 Ml Bag IV 08/14/23 20:11 999 mls/hr .Q1H1M ONE Administration Iopamidol 75 ml 08/14/23 20:53 08/14/23 20:53 Iopamidol-370 (76%);100ml Bottle IV 08/14/23 20:54 75 ml ONCE ONE Administration Ketorolac Tromethamine 15 mg 08/14/23 19:11 08/14/23 19:26 Ketorolac 30mg/Ml Vial IV 08/14/23 19:12 15 mg ONCE ONE Administration Morphine Sulfate 2 mg 08/14/23 19:11 08/14/23 19:26 Morphine 2mg/Ml Syringe IV 08/14/23 19:12 2 mg ONCE ONE Administration Sodium Chloride 10 ml 08/14/23 20:53 08/14/23 20:53 Sodium Chloride 0.9% 10ml Syr (Rad Only) IV 09/13/23 20:52 10 ml NEEDED PRN Administration Maintain IV Site ORDERS Category Date Time Status CTA Chest [CT angio chest PE protocol] Stat Cat Scan 08/14/23 20:33 Completed Chest XR -- portable [XR chest portable] Stat Exams 08/14/23 19:11 Completed CBC w/Auto Diff [Complete Blood Count Auto Diff] Stat Lab 08/14/23 18:56 Completed CMP [Comprehensive Metabolic Panel] Stat Lab 08/14/23 18:56 Completed D-Dimer Stat Lab 08/14/23 19:53 Completed INR [Prothrombin Time INR] Stat Lab 08/14/23 19:53 Completed Lactic Acid Stat Lab 08/14/23 19:53 Completed Lipase Stat Lab 08/14/23 18:56 Completed Magnesium Stat Lab 08/14/23 18:56 Completed Rapid PCR Covid and Flu A/B Stat Lab 08/14/23 17:39 Completed Trop I [Troponin I] Stat Lab 08/14/23 18:56 Completed Troponin I Q3H Lab 08/14/23 21:38 Completed ECG initial [place] Routine Y 08/14/23 18:50 Completed MDM Narrative Medical Decision Narrative: In summary patient is a 27-year-old female who presents to the emergency department for evaluation of chest pain. Patient is hemodynamically stable upon arrival, afebrile. Physical exam shows a morbidly obese 27-year-old female who is in no acute distress. Evaluation of the superficial chest wall shows no obvious abscess erythema edema tenderness to palpation signs of mastitis. Pain is not reproducible on exam. Auscultation of chest shows clear breath sounds without evidence of adventitious sounds. Cardiovascular is normal to auscultation normal heart sounds no rubs murmurs gallops or thrills. Differential diagnosis includes ACS versus PE versus intestinal source or cause versus bacterial or viral respiratory tract infection. Initial workup will be conducted with hematologic labs CTA PE protocol respiratory swabs. Initial interventions include acetaminophen and Tylenol. Initial workup reviewed by me shows an elevated white count with left shift but negative lactate negative procalcitonin but normal EKG normal chest x-ray and normal troponin. Upon repeat evaluation patient had improvement of her chest pain after ministration of Toradol and acetaminophen. White count is elevated but patient has no evidence of infection and given 9 days not unexpected. My informal interpretation of the CTA PE protocol of her chest shows no evidence of thrombus no acute processes bilateral trace pleural effusions inferiorly. Given this appropriate for discharge home with instructions to follow-up with both her PCP and REGULATORY AFFAIRS COORDINATOR. Patient to return to ER for any worsening or change in her signs or symptoms. Patient verbalized understanding and agreed with plan I was consulted by the APOLONIA, and we discussed the complexity of the problems being addressed. I approved the treatment and management plan for this patient's care in the emergency department, thus performing a substantive por tion of the medical decision making. Susana Martin DO
[2023-08-14 19:03] VITALS: BP 153/62; PULSE 75; RESP 16; TEMP 36.1; O2SAT 98; BMI 50.1
--- NOTE | 2023-08-14 19:11 | XR_ITS ---
PROCEDURE INFORMATION: Exam: XR Chest Exam date and time: 08/14/2023 7:27 PM Age: 27 years old Clinical indication: Pain; Chest pressure; Additional info: Chest pain TECHNIQUE: Imaging protocol: Radiologic exam of the chest. Views: 1 view. COMPARISON: No relevant prior studies available. FINDINGS: Lungs: No evidence of acute pulmonary disease or infiltrates Pleural spaces: No large effusion or pneumothorax. Heart/Mediastinum: No evidence of mediastinal widening or cardiac silhouette enlargement; the mediastinum and heart appear within normal limits for contour and size. Bones/joints: No evidence of acute osseous abnormalities within the visualized portions of the thoracic spine and ribs. Osseous structures appear appropriate for patient age. IMPRESSION: No dense parenchymal consolidation, pleural effusion, or pneumothorax.
[2023-08-14] MEDS: LACTATED RINGERS 1000ML 1,000 ML 999 ML IV (19:26)
[2023-08-14] MEDS: MORPHINE 2MG/ML SYRINGE 2 MG IV (19:26)
[2023-08-14] MEDS: KETOROLAC 30MG/ML VIAL 15 MG IV (19:26)
[2023-08-14] MEDS: ACETAMINOPHEN 1,000MG/100ML VIAL 1000 MG IV (19:26)
[2023-08-14 19:30] LABS: Basophils # 0.1 K/mm3 (0-0.2); Basophils % 0.6 % (0.1-2.0); Eosinophils # 0.2 K/mm3 (0.0-0.4); Eosinophils % 1.2 % (0.1-12.0); Hematocrit 34.3 % (37.0-47.0); Lymphocytes # 3.2 K/mm3 (0.7-4.5); Lymphocytes % 24.5 % (10-50); Mean Corpuscular Hemoglobin 26.1 pg (27.0-31.2); Mean Corpuscular Volume 81.6 fl (81-99); Mean Platelet Volume 7.9 fl (7.4-10.4); Monocytes # 0.6 K/mm3 (0.1-1.0); Monocytes % 4.6 % (1.7-9.3); Neutrophils # 9.2 K/mm3 (1.8-7.8); Neutrophils % 69.2 % (37.0-80.0); Platelet Count 362 K/mm3 (142-424); Red Cell Distribution Width 15.8 % (11.5-17.5); White Blood Count 13.2 K/mm3 (4.8-10.8)
[2023-08-14 19:40] LABS: Alanine Aminotransferase 30 U/L (12-78); Albumin Level 3.7 g/dl (3.5-5.0); Albumin/Globulin Ratio 1.2 (1.1-1.8); Alkaline Phosphatase 141 U/L (38-126); Anion Gap 11.9 mEq/L (5-15); Aspartate Amino Transferase 27 U/L (14-36); Bilirubin,Total 0.3 mg/dl (0.2-1.3); Blood Urea Nitrogen 16 mg/dl (7-17); Calcium 9.2 mg/dl (8.4-10.2); Carbon Dioxide 25 mmol/L (22.0-30.0); Chloride 106 mmol/L (98-107); Creatinine Clearance Estimated 78 mL/min (50-200); Estimated Glomerular Filt Rate 85 ml/min (>60); GFR (African American) 103 ML/MIN (>60); Globulin 3.2 g/dL (1.3-3.2); Glucose 89 mg/dl (74-100); Lipase 78 U/L (23-300); Magnesium 1.9 mg/dl (1.6-2.3); Potassium 3.9 mmoL/L (3.5-5.1); Sodium 139 mmol/L (136-145); Total Protein,Serum 6.9 g/dl (6.3-8.2)
[2023-08-14 19:44] LABS: Coronavirus 19, PCR Not Detected (NotDetected); Influenza A, PCR Not Detected (NotDetected); Influenza B, PCR Not Detected (NotDetected)
[2023-08-14 20:03] LABS: Troponin I < 0.01 ng/ml (0.00-0.034)
[2023-08-14 20:11] LABS: INR 1.05 (0.9-1.1); Prothrombin Time 11.3 seconds (10.1-12.5)
[2023-08-14 20:14] LABS: Lactic Acid 0.8 mmol/L (0.7-2.1)
[2023-08-14 20:22] LABS: D-Dimer 0.65 ug/mL (0.0-0.5)
--- NOTE | 2023-08-14 20:33 | CT_ITS ---
PROCEDURE INFORMATION: Exam: CTA Chest With Contrast Exam date and time: 08/14/2023 8:46 PM Age: 27 years old Clinical indication: Pain; Chest pressure; Additional info: Chest pain, TECHNIQUE: Imaging protocol: Computed tomographic angiography of the chest with contrast. Exam focused on the arteries. 3D rendering (Not supervised by radiologist): MIP and/or 3D reconstructed images were created by the technologist. Radiation optimization: All CT scans at this facility use at least one of these dose optimization techniques: automated exposure control; mA and/or kV adjustment per patient size (includes targeted exams where dose is matched to clinical indication); or iterative reconstruction. Contrast material: ISOVUE; Contrast volume: 75 ml; Contrast route: INTRAVENOUS (IV); COMPARISON: CR XR CHEST PORTABLE 08/14/2023 7:27 PM FINDINGS: Pulmonary arteries: There is fair opacification of the pulmonary arterial tree. No central pulmonary arterial filling defect is seen. Aorta: Unremarkable. No aortic aneurysm. No aortic dissection. Other arteries: Subsegmental vessels are not well evaluated due to technical factors. Lungs: Unremarkable. No consolidation. No masses. Pleural spaces: Trace bilateral pleural effusions. Heart: Unremarkable. No cardiomegaly. No pericardial effusion. Lymph nodes: Unremarkable. No enlarged lymph nodes. Spleen: There is a small splenule. Bones/joints: Unremarkable. No acute fracture. Soft tissues: Unremarkable. Other findings: Motion artifact mildly limits evaluation. IMPRESSION: 1. No central pulmonary arterial filling defect is seen. Subsegmental vessels are not well evaluated due to technical factors. 2. Trace bilateral pleural effusions.
[2023-08-14] MEDS: SODIUM CHLORIDE 0.9% 10ML SYR (RAD ONLY) 10 ML IV (20:53)
[2023-08-14] MEDS: IOPAMIDOL-370 (76%);100ML BOTTLE 75 ML IV (20:53)
--- NOTE | 2023-08-14 21:27 | PC.NURSE ---
pt assisted back to room and hook back up to monitor, mid level in room as this time
[2023-08-14 22:18] VITALS: BP 142/76; PULSE 73; RESP 15; TEMP 36.8; O2SAT 98
[2023-08-14 22:33] LABS: Troponin I < 0.01 ng/ml (0.00-0.034)
== END 2023-08-14 22:21 | disposition home or self-care (01) ==
PROVIDERS: Physician Assistant; Emergency Provider Emergency Medicine
DX: O99.893 Other specified diseases and conditions complicating puerperium (principal); O16.5 Unspecified maternal hypertension, complicating the puerperium; O99.53 Diseases of the respiratory system complicating the puerperium; R07.9 Chest pain, unspecified; J45.909 Unspecified asthma, uncomplicated
CPT/HCPCS: 71045; 71275; 80053; 83605; 83690; 83735; 84484; 85025; 85378; 85610; 87636; 93005; 96361; 96374; 96375; 99285; J0131; Q9967

== ENCOUNTER 2023-08-26 10:42 | Outpatient (CLI) | payer BC, SELFPAY ==
[2023-08-26 11:44] LABS: Basophils # 0.1 K/mm3 (0-0.2); Basophils % 0.9 % (0.1-2.0); Eosinophils # 0.1 K/mm3 (0.0-0.4); Eosinophils % 1.3 % (0.1-12.0); Hematocrit 35.5 % (37.0-47.0); Hemoglobin 11.7 g/dL (12.2-16.2); Lymphocytes # 2.9 K/mm3 (0.7-4.5); Lymphocytes % 29.3 % (10-50); Mean Corpuscular HGB Conc 32.8 g/dL (31.8-35.4); Mean Corpuscular Hemoglobin 26.7 pg (27.0-31.2); Mean Corpuscular Volume 81.3 fl (81-99); Mean Platelet Volume 7.8 fl (7.4-10.4); Monocytes # 0.5 K/mm3 (0.1-1.0); Monocytes % 5.5 % (1.7-9.3); Neutrophils # 6.2 K/mm3 (1.8-7.8); Platelet Count 285 K/mm3 (142-424); Red Blood Count 4.37 M/mm3 (4.20-5.40); Red Cell Distribution Width 15.2 % (11.5-17.5); White Blood Count 9.8 K/mm3 (4.8-10.8)
== END 2023-08-26 23:59 ==
LOC: LAB 10:43
PROVIDERS: PCP Nurse Practitioner Family; Visit Provider Obstetrics & Gynecology
DX: D64.9 Anemia, unspecified (principal)
CPT/HCPCS: 36415; 85025

== ENCOUNTER 2023-09-23 11:21 | Outpatient (CLI) | payer BC, SELFPAY ==
[2023-09-23 12:02] LABS: Alanine Aminotransferase 48 U/L (12-78); Albumin Level 4.4 g/dl (3.5-5.0); Albumin/Globulin Ratio 1.6 (1.1-1.8); Alkaline Phosphatase 132 U/L (38-126); Anion Gap 12.4 mEq/L (5-15); Aspartate Amino Transferase 33 U/L (14-36); Bilirubin,Total 0.4 mg/dl (0.2-1.3); Blood Urea Nitrogen 12 mg/dl (7-17); Calcium 9.8 mg/dl (8.4-10.2); Carbon Dioxide 26 mmol/L (22.0-30.0); Chloride 106 mmol/L (98-107); Estimated Glomerular Filt Rate 99 ml/min (>60); GFR (African American) 120 ML/MIN (>60); Globulin 2.7 g/dL (1.3-3.2); Glucose 94 mg/dl (74-100); Potassium 4.4 mmoL/L (3.5-5.1); Sodium 140 mmol/L (136-145); Total Protein,Serum 7.1 g/dl (6.3-8.2)
== END 2023-09-23 23:59 | disposition home or self-care (01) ==
LOC: LAB 11:22
PROVIDERS: PCP Nurse Practitioner Family; Visit Provider Obstetrics & Gynecology
DX: O10.919 Unspecified pre-existing hypertension complicating pregnancy, unspecified trimester (principal)
CPT/HCPCS: 36415; 80053

== ENCOUNTER 2023-11-06 09:51 | Outpatient (CLI) | payer BC, SELFPAY ==
[2023-11-06 11:40] LABS: Alanine Aminotransferase 25 U/L (12-78); Albumin Level 4.6 g/dl (3.5-5.0); Albumin/Globulin Ratio 1.4 (1.1-1.8); Alkaline Phosphatase 137 U/L (38-126); Aspartate Amino Transferase 25 U/L (14-36); Bilirubin,Total 0.4 mg/dl (0.2-1.3); Calcium 10.2 mg/dl (8.4-10.2); Chloride 100 mmol/L (98-107); Globulin 3.2 g/dL (1.3-3.2); Glucose 82 mg/dl (74-100); Potassium 4.6 mmoL/L (3.5-5.1); Sodium 141 mmol/L (136-145); Total Protein,Serum 7.8 g/dl (6.3-8.2)
[2023-11-06 11:41] LABS: Anion Gap 16.6 mEq/L (5-15); Blood Urea Nitrogen 14 mg/dl (7-17); Carbon Dioxide 29 mmol/L (22.0-30.0); Estimated Glomerular Filt Rate 85 ml/min (>60); GFR (African American) 103 ML/MIN (>60)
[2023-11-06 12:29] LABS: Vitamin B12 749 pg/mL (239-931)
[2023-11-06 13:55] LABS: Iron 40 ug/dL (37-170)
[2023-11-06 14:05] LABS: Total Iron Binding Capacity 312 ug/dL (265-497)
== END 2023-11-06 23:59 | disposition home or self-care (01) ==
LOC: LAB 09:52
PROVIDERS: PCP Nurse Practitioner Family; Visit Provider Nurse Practitioner Family
DX: I10 Essential (primary) hypertension (principal); D64.9 Anemia, unspecified; Z68.42 Body mass index [BMI] 45.0-49.9, adult
CPT/HCPCS: 36415; 80053; 82607; 83540; 83550

== ENCOUNTER 2024-06-11 09:15 | Emergency (ER) | payer BC, SELFPAY ==
[2024-06-11 10:15] VITALS: BP 133/65; PULSE 81; RESP 17; TEMP 36.9; O2SAT 99; BMI 38.0
[2024-06-11 10:32] LABS: UTC Strep Screen (Rapid) Negative (Negative)
--- NOTE | 2024-06-11 10:41 | ED_ITS ---
Discharge Plan Disposition Patient Disposition: Home, Self-Care Condition: Good Prescriptions Prescriptions: New cefdinir 300 mg capsule 300 mg PO BID Qty: 20 0RF No Action Zepbound 10 mg/0.5 mL pen injector 10 mg SQ WEEKLY Patient Comments: INJECT 1 SYRINGE SUBCUTANEOUSLY ONCE A WEEK Referrals Follow up/Referrals: Debbie Obrien APRN [Primary Care Provider] - See instructions Activity Restrictions/Add. Instructions Additional Instructions/Restrictions: *Monitor Temp, Over the counter Motrin or Tylenol as directed/as needed Tylenol every 4 hours and Motrin every 6 hours (as long as your family doctor has told you that you can take it) for fever or pain. and straight to ER if unable to lower temp less than 101.0 after medication given *Warm salt water gargles may help to soothe the throat *Throat Lozenges? *Warm fluids like tea with honey may help to soothe the throat? *Sleep elevated *Humidifier/Vaporizer Your throat swab was sent for culture. Those results are typically sent to your primary care. Be sure to follow up in 2-3 days with your family doctor/primary care physician if no improvement so they can review those result and treat if necessary. If you don?t have a primary care doctor, I recommend you get one but in the mean time, you will have to return to a walk in clinic Follow up IMMEDIATELY for new or worsening symptoms or no Noticeable improvement over the next 48-72 hours. 911 for difficulty breathing or swallowing Clinical Impressions Clinical Impression: Otitis media Instructions Patient Instructions: Middle Ear Infection, Cefdinir Print Language Print Language: Gabonese Discharge ED Provider: Julia Neal [facility] [place] HPI General Stated complaint: left ear pain, sore throat Mode of Arrival: Ambulatory Source of Information: Patient Limitations: No Limitations Time Seen by Provider: 06/11/24 10:42 Description of Symptoms (Recalled from Triage Doc. by RN): PATIENT C/O LEFT EAR PAIN AND SORE THROAT X 4 DAYS HEENT Symptoms (Recalled from RN notes): Yes Resp Symptoms (Recalled from RN notes): No Skin Symptoms (Recalled from RN notes): No MS Symptoms (Recalled from RN notes): No Functional Status (Recalled from RN notes): WNL History of Present Illness Provider Complaint: Patient states that she has been having pain and pressure in her left ear for about 4 days that has continued to get worse States today her ear was hurting her worse so she came in Related Data Home Medications ?Medication ?Instructions ?Recorded ?Confirmed tirzepatide (weight loss) 10 10 mg SQ WEEKLY 06/11/24 06/11/24 mg/0.5 mL subcutaneous pen injector (Zepbound) Previous Rx's ?Medication ?Instructions ?Recorded cefdinir 300 mg capsule 300 mg PO BID #20 caps 06/11/24 Allergies Allergy/AdvReac Type Severity Reaction Status Date / Time No Known Allergies Allergy Verified 03/05/24 09:36 Worker's Comp Is this a Worker's Comp case?: No [facility] Disclaimer: The information contained in this section may have been updated after the patient was seen, as this information can be updated by other users. Medical History Anemia Chronic hypertension affecting Asthma Surgical History H/O tubal ligation History of delivery History of wisdom tooth extraction Hx of tonsillectomy Family History Grandmother Cancer Ovarian Father Hypertension Cancer Colon Social History Smoking Status: Never smoker alcohol intake: current alcohol intake frequency: holidays/special occasions only substance use type: denies use current occupational status: employed Travel in the last 8 weeks: None Have you lived/traveled outside [place] in past 30 days?: No Contact w/someone who lives/traveled outside US past 30 days?: No Exposure to someone with infectious disease in past 14 days?: No Do you have a fever (greater than 100.4 F or 38 C)?: No Have you tested positive for COVID-19: No Exposed to someone with COVID-19 in past 14 days?: No Do you have a sore throat?: Yes Do you have a cough?: No Do you have any weakness?: No Do you have any diarrhea?: No Are you experiencing any unusual bleeding?: No Do you have any muscle aches/pain?: No Do you have any abdominal pain?: No Are you experiencing loss of taste or smell?: No ROS Obtained: Yes All systems reviewed & no additional complaints except as documented and Yes Systems reviewed as appropriate & no additional complaints except as documented Constitutional Constitutional: Reports system reviewed and no additional complaints, except as documented and Reports as per HPI Eyes Eyes: Reports system reviewed and no additional complaints, except as documented and Reports as per HPI ENT Ears, Nose, Mouth, and Throat: Reports system reviewed and no additional complaints, except as documented, Reports as per HPI and Reports otalgia Cardiovascular Cardiovascular: Reports system reviewed and no additional complaints, except as documented and Reports as per HPI Respiratory Respiratory: Reports system reviewed and no additional complaints, except as documented and Reports as per HPI Gastrointestinal Gastrointestingal: Reports system reviewed and no additional complaints, except as documented and as per HPI Physical Exam General General appearance: alert and in no apparent distress ENT ENT exam: Present mucous membranes moist Expanded ENT Exam TM/Canal exam: Left TM: erythema and bulging Respiratory Respiratory exam: Present normal lung sounds bilaterally; Absent respiratory distress or wheezes Cardiovascular Cardiovascular exam: Present regular rate, normal rhythm and normal heart sounds Neurological Exam Neurological exam: Present alert, oriented X3 and normal gait Medical Decision Making Medical Records Screening: Per USPSTF and CDC recommendations, given the prevalence of disease in our region, it is our hospital?s policy to screen for HIV and viral Hepatitis for all patients aged 18 and over and those with ongoing risk factors. Ahsan Inquiry Pt receiving controlled substance: No Ahsan was queried for this patient: No Vital Signs: 06/11/24 10:15 Temperature 98.4 F Temperature Source Oral Pulse Rate [Left Brachial] 81 Respiratory Rate 17 Blood Pressure [Left Arm] 133/65 Blood Pressure Mean [Left Arm] 87 Blood Pressure Source [Left Arm] Automatic Cuff Blood Pressure Position [Left Arm] Sitting 02 Sat by Pulse Oximetry 99 Oxygen Delivery Method Room Air Lab Data Lab results reviewed: Yes I reviewed the patient's lab results. Lab Results 06/11/24 10:16: Strep Scn Rapid Clinic Negative Orders (Tests/Meds): ORDERS Category Date Time Status Strep Screen Confirmation Stat Micro 06/11/24 10:16 Received
[2024-06-11 10:48] VITALS: BP 133/65; PULSE 81; RESP 17; TEMP 36.9; O2SAT 99
== END 2024-06-11 10:56 | disposition home or self-care (01) ==
PROVIDERS: Emergency Provider Nurse Practitioner; PCP Nurse Practitioner Family
DX: H66.93 Otitis media, unspecified, bilateral (principal)
CPT/HCPCS: 87880; 99213; G0381

== ENCOUNTER 2024-11-23 18:23 | Observation (INO) | payer BC, SELFPAY ==
--- NOTE | 2024-11-23 18:44 | HMH.EDGENADL ---
Discharge Plan Disposition Patient Disposition: Admitted Condition: Fair Clinical Impressions Clinical Impression: Cholecystitis Discharge ED Provider: Jack Gerber General Adult HPI General Chief complaint: Abdominal Pain Stated complaint: Abdominal Pain with vomiting Time Seen by Provider: 11/23/24 18:44 History of Present Illness HPI narrative: Patient is a 28-year-old female with history of prediabetes and obesity on Zepbound. Abdominal surgical history includes and bilateral salpingectomy 1 year ago. She presents today due to acute onset of abdominal pain. Pain began last night postprandially after dinner, was epigastric and right upper quadrant in nature. She was able to take Tylenol go to bed, but pain woke her up from her sleep around 1 AM and she began vomiting. She has not been able to keep any down recurrent nonbloody vomiting. Has not had a bowel movement in over 24 hours. Is still passing gas. Has not urinated in over 6 hours. She denies any chest pain or shortness of breath or fevers. Does endorse positive sick contacts at home with her child who has a viral URI syndrome. She denies any dysuria hematuria or vaginal discharge. Related Data Home Medications ?Medication ?Instructions ?Recorded ?Confirmed tirzepatide (weight loss) 10 10 mg SQ WEEKLY 06/11/24 11/23/24 mg/0.5 mL subcutaneous pen injector (Zepbound) Allergies Allergy/AdvReac Type Severity Reaction Status Date / Time No Known Allergies Allergy Verified 03/05/24 09:36 [facility] Disclaimer: The information contained in this section may have been updated after the patient was seen, as this information can be updated by other users. Medical History Anemia Chronic hypertension affecting Asthma Surgical History H/O tubal ligation History of delivery History of wisdom tooth extraction Hx of tonsillectomy Family History Grandmother Cancer Ovarian Father Hypertension Cancer Colon Social History Smoking Status: Never smoker alcohol intake: current alcohol intake frequency: holidays/special occasions only substance use type: denies use current occupational status: employed Travel in the last 8 weeks?: None Have you lived/traveled outside US in past 30 days?: No Contact w/someone who lives/traveled outside US past 30 days?: No Exposure to someone with infectious disease in past 14 days?: No Do you have a fever (greater than 100.4 F or 38 C)?: No Have you tested positive for COVID-19?: No Exposed to someone with COVID-19 in past 14 days?: No Do you have a sore throat?: No Do you have a cough?: No Do you have any weakness?: No Do you have any diarrhea?: No Are you experiencing any unusual bleeding?: No Do you have any muscle aches/pain?: No Do you have any abdominal pain?: No Are you experiencing loss of taste or smell?: No Other Medical History Have you received the Flu Vaccine for this season: No Have you received the Pneumonia Vaccine: No ROS Obtained: Yes All systems reviewed & no additional complaints except as documented Physical Exam General General appearance: alert and in no apparent distress Head Head exam: atraumatic and normocephalic Eye Eye exam: Present PERRL and EOMI ENT ENT exam: Present normal oropharynx Neck Neck exam: Present full ROM and trachea midline Chest Chest inspection: Present symmetric chest wall rise Respiratory Respiratory exam: Present normal lung sounds bilaterally; Absent stridor Cardiovascular Cardiovascular exam: Present regular rate and normal rhythm Abdominal Exam Abdominal exam: Present soft and tenderness (ruq and epigastric); Absent distention Extremities Exam Extremities exam: Present full ROM Neurological Exam Neurological exam: Present alert and oriented X3 Psychiatric Psychiatric exam: Present normal mood Skin Skin exam: Present warm and dry Medical Decision Making Medical Records Screening: Per USPSTF and CDC recommendations, given the prevalence of disease in our region, it is our hospital?s policy to screen for HIV and viral Hepatitis for all patients aged 18 and over and those with ongoing risk factors. Ahsan Inquiry Pt receiving controlled substance: No Vital Signs: 11/23/24 18:46 11/23/24 19:01 11/23/24 19:30 Temperature 98.4 F Temperature Source Oral Pulse Rate 90 73 Pulse Rate [Right Radial] 93 H Respiratory Rate 10 L 13 14 Blood Pressure 125/92 H 128/88 Blood Pressure [Right Arm] 127/86 Blood Pressure Mean [Right Arm] 99 Blood Pressure Source [Right Arm] Automatic Cuff Blood Pressure Position [Right Arm] Supine 02 Sat by Pulse Oximetry 98 100 100 Oxygen Delivery Method Room Air 11/23/24 20:00 11/23/24 21:39 Temperature Temperature Source Pulse Rate 79 Pulse Rate [Right Radial] Respiratory Rate 13 Blood Pressure 122/82 Blood Pressure [Right Arm] Blood Pressure Mean [Right Arm] Blood Pressure Source [Right Arm] Blood Pressure Position [Right Arm] 02 Sat by Pulse Oximetry 100 Oxygen Delivery Method Room Air Lab Data Lab Results 11/23/24 18:49: WBC 10.1, RBC 5.17, Hgb 13.4, Hct 40.7, MCV 78.7 L, MCH 25.9 L, MCHC 32.9, RDW 13.4, Plt Count 284, MPV 9.8, Neut % (Auto) 71.8, Lymph % (Auto) 19.9, Runnels % (Auto) 7.3, Eos % (Auto) 0.4, Baso % (Auto) 0.3, Neut # (Auto) 7.2, Lymph # (Auto) 2.0, Runnels # (Auto) 0.7, Eos # (Auto) 0.0, Baso # (Auto) 0.0, Sodium 136, Potassium 3.9, Chloride 103, Carbon Dioxide 28, Anion Gap 8.9, BUN 9, Creatinine 0.70, Estimated Creat Clear 145, Estimated GFR 98, Est GFR ( Amer) 119, Glucose 93, Calcium 9.4, Total Bilirubin 0.8, AST 27, ALT 25, Alkaline Phosphatase 88, Total Protein 8.1, Albumin 4.6, Globulin 3.5 H, Albumin/Globulin Ratio 1.3, Lipase 108, Serum HCG, Qual Negative, HCV Ab REID w/Rflx PCR Qn Negative, HIV Ag/Ab Combo Qual Negative 11/23/24 19:58: Lactate 0.6 L 11/23/24 18:49 11/23/24 18:49 Orders (Tests/Meds): ED MEDICATIONS Generic Name Dose Route Start Last Admin Trade Name Freq PRN Reason Stop Dose Admin Heparin Sodium (Porcine) 5,000 unit 11/24/24 09:00 Heparin Sodium 5,000 Unit/Ml Vial SUBCUT 12/24/24 08:59 TID SUHAIL Sodium Chloride 1,000 mls @ 50 mls/hr 11/23/24 21:30 11/23/24 22:37 Sod Chlor 0.9% 1000ml Bag IV 12/23/24 21:29 50 mls/hr .Q20H SUHAIL Administration Piperacillin Sod/Tazobactam 50 mls @ 100 mls/hr 11/23/24 21:30 11/23/24 23:15 Sod 3.375 gm/ Sodium Chloride IV 12/03/24 21:29 Not Given Q6H SUHAIL Morphine Sulfate 2 mg 11/23/24 21:22 Morphine 2mg/Ml Syringe IV 12/23/24 21:21 Q2HP PRN Severe Pain (7-10) Promethazine HCl 25 mg 11/23/24 21:22 Promethazine Hcl 25mg/Ml 1ml Vial IV 12/23/24 21:21 Q6HP PRN Nausea And Vomiting Discontinued Medications Generic Name Dose Route Start Last Admin Trade Name Freq PRN Reason Stop Dose Admin Lactated Ringer's 1,000 mls @ 999 mls/hr 11/23/24 19:15 11/23/24 19:35 Lactated Ringer's 1000 Ml Bag IV 11/23/24 20:15 999 mls/hr .Q1H1M ONE Administration Piperacillin Sod/Tazobactam 100 mls @ 200 mls/hr 11/23/24 21:15 11/23/24 21:18 Sod 4.5 gm/ Sodium Chloride IV 12/03/24 21:14 200 mls/hr Q8H SUHAIL Administration Iopamidol 70 ml 11/23/24 19:45 11/23/24 19:46 Iopamidol-370 (76%);100ml Bottle IV 11/23/24 19:46 70 ml ONCE ONE Administration Morphine Sulfate 4 mg 11/23/24 19:15 11/23/24 19:35 Morphine 4mg/Ml Syringe IV 11/23/24 19:16 4 mg ONCE ONE Administration Ondansetron HCl 4 mg 11/23/24 19:15 11/23/24 19:34 Ondansetron 4mg/2ml Vial IV 11/23/24 19:16 4 mg ONCE ONE Administration Sodium Chloride 10 ml 11/23/24 19:45 11/23/24 19:46 Sodium Chloride 0.9% 10ml Syr (Rad Only) IV 11/23/24 19:46 10 ml ONCE ONE Administration Sodium Chloride 25 ml 11/23/24 21:22 11/23/24 23:15 Sodium Chloride 0.9% 25ml Bag IV 11/23/24 21:23 Not Given ONCE ONE ORDERS Category Date Time Status CT abdomen pelvis w con Stat Cat Scan 11/23/24 19:16 Completed Consult to General Surgery [CONS] Routine Cons 11/23/24 21:22 Ordered Complete Blood Count Auto Diff AMLAB Lab 11/24/24 06:00 Ordered Complete Blood Count Auto Diff Stat Lab 11/23/24 18:49 Completed Comprehensive Metabolic Panel AMLAB Lab 11/24/24 06:00 Ordered Comprehensive Metabolic Panel Stat Lab 11/23/24 18:49 Completed HCG Qualitative, Serum Stat Lab 11/23/24 18:49 Completed HIV Combo Stat Lab 11/23/24 18:49 Completed Hepatitis C Ab Qual. W/ RFX Stat Lab 11/23/24 18:49 Completed Lactic Acid Stat Lab 11/23/24 19:58 Completed Lipase Stat Lab 11/23/24 18:49 Completed Urinalysis and Microscopic Stat Lab 11/23/24 22:01 Completed Medical Decision Narrative: In summary, this 28-year-old female presents to the emergency department today with abdominal pain. On initial evaluation patient is afebrile hemodynamically stable in no acute distress. On exam, warm and well-perfused. Abdomen is soft, nondistended. She does have reproducible tenderness in the epigastric and right upper quadrant pain. She has a positive Jurado sign. No flank tenderness. Heart is regular and lung sounds colostrum laterally moist mucous membranes no sublingual jaundice.. Differential diagnosis includes but is not limited to cholelithiasis, cholecystitis, pancreatitis, bowel obstruction, diverticulitis, intra-abdominal abscess. Based on these concerns, I ordered CBC CMP lipase lactate UA CT abdomen pelvis.. Patient received morphine Zofran Zosyn for treatment. Labs personally reviewed demonstrate no leukocytosis no evidence of anemia, no MEGHA electrolyte within normal limits. Lactate within normal limits. Urinalysis without evidence of infection.. CT imaging personally interpreted demonstrate findings concerning for acalculous cholecystitis. I considered under distention, however patient reports that she has not eaten in several hours, so likely the gallbladder would be expanded. She has persistent pain in the right upper quadrant even after morphine and Zofran but reasonable to begin antibiotics with Zosyn and consult with hospital medicine for admission for surgery consult in the morning for acalculous cholecystitis. Overall, patient is well-appearing, not exhibiting any sepsis criteria. Hospitalist ultimately agrees to admit the patient to service for further workup and management after interactive discussion and will be transferred in hemodynamically stable condition.. Critical Care Critical Care Time Critical Care Time: No
[2024-11-23 18:46] VITALS: BP 127/86; PULSE 93; RESP 10; TEMP 36.9; O2SAT 98; BMI 33.5
--- OUTSIDE RECORDS SUMMARY | 2024-11-23 18:47 | XMS_ITS | Clinical Summary ---
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 18 g 5 1 Active fluticasone (Flonase) 50 MCG/ACT nasal spray USE 2 SPRAY(S) IN EACH NOSTRIL ONCE DAILY 3 Active levocetirizine (Xyzal) 5 MG tablet Take 1 tablet (5 mg) by mouth 1 (one) time each day. 3 Active Fluticasone-Umecl idin-Vilant (Trelegy Ellipta) 200-62.5-25 MCG/ACT aerosol powder Inhale. Active labetalol (Normodyne) 200 MG tablet Take 1 tablet (200 mg) by mouth 2 (two) times a day. 4 Active Vit-Fe Fumarate-FA (PNV PLUS MULTIVITAMIN PO) Take 1 tablet by mouth 1 (one) time each day. Active acetaminophen (Tylenol) 325 MG tablet Take 2 tablets (650 mg) by mouth every 6 (six) hours. 60 tablet 3 4 Active ibuprofen 600 MG tabletIndications :Mild to Moderate Pain Take 1 tablet (600 mg) by mouth every 6 (six) hours. 60 tablet 2 4 Active ferrous sulfate 325 (65 Fe) MG tablet Take 1 tablet (325 mg) by mouth 1 (one) time each day with breakfast. 30 tablet 2 4 Active RES - moringa or Placebo (Moringa) capsule Take 4 capsules (2,000 mg) by mouth 2 (two) times a day. 56 capsule 4 Active Active Problems Problem Noted Date Diagnosed Date Third trimester 08/05/2023 Asthma 10/10/2015 Obesity 10/10/2015 Immunizations Immunization Administration Dates Next Due Influenza, injectable, quadrivalent, preservativ e free 04/22/2019 Influenza, seasonal, injectable, preservative fr ee 04/03/2016 PPD Skin Test (TB Skin Test) 01/22/2021 Pneumococcal 20-alexandru Conj Vaccine 10/14/2022 Tdap 10/14/2022 Family History Medical History Relation Name Comments Seizures Cousin Cancer Father Ricci Obesity Father Ricci Obesity Maternal Grandmother Jacki Obesity Mother Moris Obesity Paternal Grandfather Carlos Cancer Paternal Grandmother Jossy Obesity Paternal Grandmother Jossy Depression Sister 1 Tessa Obesity Sister 1 [place] Depression Sister 2 [place] Relation Name Status Comments Cousin Father Ricci Maternal Grandmother Jacki Mother Moris Paternal Grandfather Carlos Paternal Grandmother Jossy Sister 1 Tessa Sister 2 [place] Social History Tobacco Use Types Packs/Day Years Used Date Smoking Tobacco: Never Smokeless Tobacco: Never Alcohol Use Standard Drinks/Week Comments Not Currently 1 (1 standard drink = 0.6 oz pur e alcohol) Occasional Humiliation, Afraid, Rape, and Kick questionnair e Answer Date Recorded Within the last year, have y ou been afraid of your partner or ex-partner? No 08/06/2023 Within the last year, have y ou been humiliated or emotionally abused in other ways by your partner or ex-partner? No Within the last year, have y ou been kicked, hit, slapped, or otherwise physically hurt by your partner or ex-partner? No 08/06/2023 Within the last year, have y ou been raped or forced to have any kind of sexual activity by your partner or ex-partner? No 08/06/2023 Social Connection and Isolation Panel Answer Date Recorded In a typical week, how many times do you talk on the phone with family, friends, or neighbors? More than three times a week 05/21/2021 How often do you get togethe r with friends or relatives? Once a week 05/21/2021 How often do you attend chur ch or nondenominational services? Never 05/21/2021 Do you belong to any clubs o r organizations such as christianity groups, unions, fraternal or athletic groups, or school groups? No 05/21/2021 How often do you attend meet ings of the clubs or organizations you belong to? Never 05/21/2021 Are you , , di vorced, , never , or living with a partner? 05/21/2021 AUDIT-C Answer Date Recorded Q1: How often do you have a drink containing alc ohol? 2-3 times a week 05/21/2021 Q2: How many drinks containi ng alcohol do you have on a typical day when you are drinking? 1 or 2 05/21/2021 Q3: How often do you have si x or more drinks on one occasion? Never 05/21/2021 Overall Financial Resource Strain (CARDIA) Answe r Date Recorded How hard is it for you to pa y for the very basics like food, housing, medical care, and heating? Not hard at all 05/21/2021 PHQ-2 Answer Date Recorded Patient Health Questionnaire-2 Score 0 10/25/2022 [facility] - Occupational Stress Questionnaire Answer Date Recorded Do you feel stress - tense, restless, nervous, or anxious, or unable to sleep at night because your mind is troubled all the time - these days? Not at all 05/21/2021 Exercise Vital Sign Answer Date Recorde d On average, how many days pe r week do you engage in moderate to strenuous exercise (like a brisk walk)? 5 days 05/21/2021 On average, how many minutes do you engage in exercise at this level? 30 min 05/21/2021 Hunger Vital Sign Answer Date Recorded Within the past 12 months, y ou worried that your food would run out before you got the money to buy more. Never true 08/06/19 24 Within the past 12 months, t he food you bought just didn't last and you didn't have money to get more. Never true 08/06/2023 PRAPARE - Transportation Answer Date Re corded In the past 12 months, has l ack of transportation kept you from medical appointments or from getting medications? No 07/18 In the past 12 months, has l ack of transportation kept you from meetings, work, or from getting things needed for daily living? No 08/06/2023 Housing Stability Vital Sign Answer Blaze e Recorded In the last 12 months, was t here a time when you were not able to pay the mortgage or rent on time? No 08/06/2023 Number of Places Lived in the Last Year Not on f ile 08/06/2023 In the last 12 months, was t here a time when you did not have a steady place to sleep or slept in a snf (including now)? No 08/06/2023 [place] Depression Scale Answer Date Recorded [place] Depression Scale Total 0 08/13/2023 The thought of harming myself has occurred to me . Never 08/13/2023 CAGE ASSESSMENT Answer Date Recorded Cage unable to access Not on file 08/05/2023 Cage max number of drinks Not on file 2023 Cage Beverages a week Not on file 08/05/2023 Have you ever felt you should CUT down on your d rinking? 0 08/05/2023 Have you been ANNOYED by people criticizing your drinking? 0 08/05/2023 Have you felt GUILTY about your drinking? 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 0 08/05/2023 CAGE Questionnaire Score 0 024 Utilities Answer Date Recorded In the past 12 months has th e [employer], gas, oil, or water company threatened to shut off services in your home? No 08/06/2023 PHQ-2A Answer Date Recorded Patient Health Questionnaire-2 Score 0 10/25/2022 Comments No Sex and Gender Information Value Date Recorded Sex Assigned at Female 01/19/2021 8:22 AM EDT Legal Sex Female 6:41 PM EDT Gender Identity Female 01/19/2021 8:22 AM EDT Sexual Orientation Straight 01/19/2021 8: 22 AM EDT Last Filed Vital Signs Vital Sign Reading Time Taken Comments Blood Pressure 140/85 08/13/2023 2:30 PM EST Pulse 65 08/13/2023 2:24 PM EST Temperature 36.9 C (98.5 F) 08/13/2023 2:24 PM EST Respiratory Rate 16 08/13/2023 2:24 PM EST Oxygen Saturation 95% 08/13/2023 2:24 PM EST Inhaled Oxygen Concentration - - Weight 119 kg (262 lb 9.1 oz) 08/13/2023 2:24 PM EST Height 153.7 cm (5' 0.5 ) 08/13/2023 2:24 PM EST Body Mass Index 50.44 08/13/2023 2:24 PM EST Plan of Treatment Health Maintenance Due Date Last Done Comments [facility]-Infant/Child/Adol SDOH Screenings 1993 [facility]-Varicella Vaccines (1 of 2 - 13+ 2-dose series) 2006 HPV Vaccines (1 - 3-dose series) 2008 [facility]- SDOH Screenings 12/21/2011 [facility]-Adult SDOH Screenings 12/21/2011 [facility]-Hepatitis B Vaccines (1 of 3 - 19+ 3-dose series) 2012 [facility]-Pap Smear 2014 [facility]-Cervical Cancer Screening 12/21/2023 [facility]-HPV/Cotest 12/21/2023 [id number] Vaccine ( - season) 2024 [facility]-Depression Screening 08/13/2024 08/13/2023, 10/14 [facility]-Influenza Vaccine (Season Ended) 2025 04/22/2019, 04/03/2016 [facility]-DTaP,Tdap,and Td Vaccines (2 - Td or Tdap) 10/14/2032 10/14/2022 [facility]-Zoster Vaccines (1 of 2) 12/21/2043 [facility]-HIV Screening Completed 10/10/2015 [facility]-Hepatitis C Screening Completed 10/10/2015 [facility]-Pneumococcal Vaccine: Pediatrics (0 to 5 Years) and At-Risk Patients (6 to 49 Years) Completed 10/14/2022 [facility]-Diabetes: Hemoglobin A1C Discontinued 10/25/2022, 05/21/2021, 03/22/2020, Additional history exists [facility]-Obesity Intervention Completed 024, 10/25/2022, 10/25/2022, Additional history exists [facility]-HIB Vaccines Aged Out No longer e ligible based on patient's age to complete this topic [facility]-Hepatitis A Vaccines Aged Out No longer eligible based on patient's age to complete this topic [facility]-IPV Vaccines Aged Out No longer e ligible based on patient's age to complete this topic [facility]-Rotavirus Vaccines Aged Out No lo nger eligible based on patient's age to complete this topic Procedures Procedure Name Priority Date/Time Associated Diagnosis Comments HEMOGLOBIN A1C Routine 10/25/2022 10:18 AM EDT Class 3 severe obesity due to excess calories without serious comorbidity with body mass index (BMI) of 50.0 to 59.9 in adult (CMS/HCC) HEPATITIS C ANTIBODY W/REFLEX TO HCV QUANT PCR Routine 10/10/2015 9:33 AM EDT HIV 1/2 ANTIBODY/ANTIGEN SCREEN WITH REFLEX TO HIV I/II DIFFERENTIATION Routine 10/10/2015 9:33 AM EDT from Last 3 Months or Most Recently Relevant to Health Maintenance Results * Hemoglobin A1c (10/25/2022 10:18 AM EDT) Hemoglobin A1c 5.0 <5.7 % 10/25/2022 1:06 PM EDT [facility] Blood Venous blood specimen / Unknown Venipuncture / Unknown 10/25/2022 10:18 AM EDT 10/25/2022 10:18 AM EDT Narrative [facility] - 10/25/2022 1:06 PM EDT HA1C Interpretive Data: Diagnosis of Diabetes: Diabetic > or = 6.5% Pre-diabetic 5.7 to 6.4% Non-diabetic < or = 5.6% Glycemic Targets for Type I and Type II Diabetics: Non- Adults <7.0% Adults <6.0% Children and Adolescents <7.5% Source: [place] [employer]. Standards of medical care in diabetes,2017. Diabetes Care.2017:40 (suppl 1):S1-S135. HbA1c assay performed by an ion-exchange chromatography method that is certified traceable to the [facility]. us Sol Mendoza APRN LAB BLOOD ORDERABLES Final Resu lt [facility] [address] [place] [address] * HIV 1 & 2 Antibody/Antigen Screen (10/10/2015 9:33 AM EDT) HIV 1 Result NONREACTIVE Screening for HIV 1 and 2 antibodies is NONREACTIVE. No confirmatory testing is required. SUNQUEST 10/10/2015 9:33 AM EDT 10/10/2015 12:37 PM EDT Historical Provider LAB BLOOD ORDERABLES Esther l Result SUNQUEST * Hepatitis C Antibody (10/10/2015 9:33 AM EDT) Hepatitis C Antibody NEGATIVE Reference Range: Negative SUNQUEST 10/10/2015 9:33 AM EDT 10/10/2015 12:37 PM EDT Historical Provider LAB BLOOD ORDERABLES Esther l Result Performing Organization Address City/[facility]/ZIP Co de Phone Number ALEXEY from Last 3 Months or Most Recently Relevant to Health Maintenance Insurance Advance Directives * Full Code (Latest Code Status on File) Date Activated Date Inactivated Comments 08/05/2023 4:41 AM 08/07/2023 3:21 PM Question Answer Comments Patient has decision-making capacity? 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
[2024-11-23 19:01] VITALS: BP 125/92; PULSE 90; RESP 13; O2SAT 100
--- NOTE | 2024-11-23 19:16 | CT_ITS ---
PROCEDURE INFORMATION: Exam: CT Abdomen And Pelvis With Contrast Exam date and time: 11/23/2024 7:45 PM Age: 28 years old Clinical indication: Abdominal pain; Additional info: Ruq and epigastric ttp, no bm, vomiting TECHNIQUE: Imaging protocol: Computed tomography of the abdomen and pelvis with contrast. Radiation optimization: All CT scans at this facility use at least one of these dose optimization techniques: automated exposure control; mA and/or kV adjustment per patient size (includes targeted exams where dose is matched to clinical indication); or iterative reconstruction. Contrast material: ISOVUE; Contrast volume: 75 ml; Contrast route: IV; COMPARISON: US OB BIOPHYSICAL PROFILE 07/30/2023 2:11 PM FINDINGS: Liver: Normal. No mass. Gallbladder and biliary ducts: Distended gallbladder with wall thickening without radiopaque gallstones. Pancreas: Normal. No ductal dilation. Spleen: Normal. No splenomegaly. Adrenal glands: Normal. No mass. Kidneys and ureters: 0.2 cm nonobstructive left renal calculus. No hydronephrosis. Stomach and bowel: Nonobstructive pattern. Appendix: No evidence of appendicitis. Intraperitoneal space: Unremarkable. No free air. No significant fluid collection. Vasculature: Unremarkable. No abdominal aortic aneurysm. Lymph nodes: Unremarkable. No enlarged lymph nodes. Urinary bladder: Unremarkable as visualized. Reproductive: Unremarkable as visualized. Bones/joints: Unremarkable. No acute fracture. Soft tissues: Unremarkable. IMPRESSION: 1. Gallbladder wall distension with wall thickening without radiopaque calculus identified, suspicious for acalculous cholecystitis. 2. Tiny nonobstructive left renal calculus.
[2024-11-23 19:20] LABS: Alanine Aminotransferase 25 U/L (12-78); Albumin Level 4.6 g/dl (3.5-5.0); Albumin/Globulin Ratio 1.3 (1.1-1.8); Alkaline Phosphatase 88 U/L (38-126); Anion Gap 8.9 mEq/L (5-15); Aspartate Amino Transferase 27 U/L (14-36); Basophils % 0.3 % (0.1-2.0); Bilirubin,Total 0.8 mg/dl (0.2-1.3); Blood Urea Nitrogen 9 mg/dl (7-17); Calcium 9.4 mg/dl (8.4-10.2); Carbon Dioxide 28 mmol/L (22.0-30.0); Chloride 103 mmol/L (98-107); Creatinine Clearance Estimated 145 mL/min (50-200); Eosinophils % 0.4 % (0.1-12.0); Estimated Glomerular Filt Rate 98 ml/min (>60); GFR (African American) 119 ML/MIN (>60); Globulin 3.5 g/dL (1.3-3.2); Glucose 93 mg/dl (74-100); Hematocrit 40.7 % (37.0-47.0); Hemoglobin 13.4 g/dL (12.2-16.2); Immature Granulocytes # 0.03 10^3uL; Immature Granulocytes % 0.3 %; Lipase 108 U/L (23-300); Lymphocytes % 19.9 % (10-50); Mean Corpuscular HGB Conc 32.9 g/dL (31.8-35.4); Mean Corpuscular Hemoglobin 25.9 pg (27.0-31.2); Mean Corpuscular Volume 78.7 fl (81-99); Mean Platelet Volume 9.8 fl (7.4-10.4); Monocytes # 0.7 K/mm3 (0.1-1.0); Monocytes % 7.3 % (1.7-9.3); Neutrophils # 7.2 K/mm3 (1.8-7.8); Neutrophils % 71.8 % (37.0-80.0); Nucleated Red Blood Cells # 0 10^3/uL; Nucleated Red Blood Cells % 0 %; Platelet Count 284 K/mm3 (142-424); Potassium 3.9 mmoL/L (3.5-5.1); Red Blood Count 5.17 M/mm3 (4.20-5.40); Red Cell Distribution Width 13.4 % (11.5-17.5); Red Cell Distribution Width-SD 38.6 fL; Sodium 136 mmol/L (136-145); Total Protein,Serum 8.1 g/dl (6.3-8.2); White Blood Count 10.1 K/mm3 (4.8-10.8)
[2024-11-23 19:27] LABS: HCG Qualitative, Serum Negative (Negative)
[2024-11-23 19:30] VITALS: BP 128/88; PULSE 73; RESP 14; O2SAT 100
[2024-11-23] MEDS: ONDANSETRON 4MG/2ML VIAL 4 MG IV (19:34)
[2024-11-23] MEDS: LACTATED RINGERS 1000ML 1,000 ML 999 ML IV (19:35)
[2024-11-23] MEDS: MORPHINE 4MG/ML SYRINGE 4 MG IV (19:35)
[2024-11-23] MEDS: SODIUM CHLORIDE 0.9% 10ML SYR (RAD ONLY) 10 ML IV (19:46)
[2024-11-23] MEDS: IOPAMIDOL-370 (76%);100ML BOTTLE 70 ML IV (19:46)
[2024-11-23 20:00] VITALS: BP 122/82; PULSE 79; RESP 13; O2SAT 100
[2024-11-23 20:10] LABS: HIV Combo NEGATIVE (Negative)
[2024-11-23 20:18] LABS: Hepatitis C Ab Qual. W/ RFX NEGATIVE (Negative)
[2024-11-23 20:19] LABS: Lactic Acid 0.6 mmol/L (0.7-2.1)
[2024-11-23] MEDS: PIPERACILLIN/TAZO 4.5 GM in 0.9 % SODIUM CHLORIDE 100 ML IV (21:18)
[2024-11-23 22:05] LABS: Microscopic, Urine URINE MICROSCOPIC (MICROSCOPIC)
[2024-11-23 22:10] LABS: Appearance,Urine SL CLOUDY (Clear); Bilirubin,Urine Negative (Negative); Blood, Urine 1+ (Negative); Color,Urine YELLOW (Yellow); Glucose,Urine (UA) Negative (Negative); Ketones,Urine 3+ (Negative); Leukocyte Esterase,Urine Negative (Negative); Nitrate,Urine Negative (Negative); PH,Urine 5.5 (5.0-8.5); Protein,Urine Negative (Negative); Urobilinogen,Urine 0.2 EU/dl (0.2)
--- NOTE | 2024-11-23 22:21 | EXP.HP ---
History of Present Illness *Admission Date: 11/23/24 *Reason for visit:: Abdominal pain *History of present illness: Patient is a 28-year-old female with past medical history of obesity who presents to the hospital due to abdominal pain located in right abdomen, according to patient patient pain was initially epigastric and now it is radiating to right side of her abdomen from right upper quadrant to right lower quadrant. Patient mentions her pain feels like deep sensation, she also has associated nausea and vomiting-nonbloody. Patient denies hematuria, diarrhea constipation dysuria, denies being on monthly cycle. Denied fevers chills chest pain shortness of breath. [facility] Disclaimer: The information contained in this section may have been updated after the patient was seen, as this information can be updated by other users. Medical History Anemia Chronic hypertension affecting Asthma Surgical History H/O tubal ligation History of delivery History of wisdom tooth extraction Hx of tonsillectomy Family History Grandmother Cancer Ovarian Father Hypertension Cancer Colon Social History Smoking Status: Never smoker alcohol intake: current alcohol intake frequency: holidays/special occasions only substance use type: denies use current occupational status: employed Travel in the last 8 weeks?: None Have you lived/traveled outside US in past 30 days?: No Contact w/someone who lives/traveled outside US past 30 days?: No Exposure to someone with infectious disease in past 14 days?: No Do you have a fever (greater than 100.4 F or 38 C)?: No Have you tested positive for COVID-19?: No Exposed to someone with COVID-19 in past 14 days?: No Do you have a sore throat?: No Do you have a cough?: No Do you have any weakness?: No Do you have any diarrhea?: No Are you experiencing any unusual bleeding?: No Do you have any muscle aches/pain?: No Do you have any abdominal pain?: No Are you experiencing loss of taste or smell?: No Other Medical History Have you received the Flu Vaccine for this season: No Have you received the Pneumonia Vaccine: No Review of Systems Review of Systems Review of systems:: pertinent systems reviewed and negative unless documented below Meds Home Medications and Allergies Home Medications ?Medication ?Instructions ?Recorded ?Confirmed ?Type tirzepatide (weight loss) 10 10 mg SQ WEEKLY 06/11/24 11/23/24 History mg/0.5 mL subcutaneous pen injector (Zepbound) New Prescriptions to Start Prescriptions: Allergies Allergy/AdvReac Type Severity Reaction Status Date / Time No Known Allergies Allergy Verified 03/05/24 09:36 Exam Data for Last 24 hours Vital signs and Labs for Last 24 Hours: Temp Pulse Resp BP Pulse Ox O2 Del Method 98.4 F 79 13 122/82 100 Room Air 11/23/24 18:46 11/23/24 20:00 11/23/24 20:00 11/23/24 20:00 11/23/24 20:00 11/23/24 18:46 Laboratory Results - last 24 hr 11/23/24 18:49: WBC 10.1, RBC 5.17, Hgb 13.4, Hct 40.7, MCV 78.7 L, MCH 25.9 L, MCHC 32.9, RDW 13.4, Plt Count 284, MPV 9.8, Neut % (Auto) 71.8, Lymph % (Auto) 19.9, [place] % (Auto) 7.3, Eos % (Auto) 0.4, Baso % (Auto) 0.3, Neut # (Auto) 7.2, Lymph # (Auto) 2.0, [place] # (Auto) 0.7, Eos # (Auto) 0.0, Baso # (Auto) 0.0, Sodium 136, Potassium 3.9, Chloride 103, Carbon Dioxide 28, Anion Gap 8.9, BUN 9, Creatinine 0.70, Estimated Creat Clear 145, Estimated GFR 98, Est GFR ( Amer) 119, Glucose 93, Calcium 9.4, Total Bilirubin 0.8, AST 27, ALT 25, Alkaline Phosphatase 88, Total Protein 8.1, Albumin 4.6, Globulin 3.5 H, Albumin/Globulin Ratio 1.3, Lipase 108, Serum HCG, Qual Negative, HCV Ab REID w/Rflx PCR Qn Negative, HIV Ag/Ab Combo Qual Negative 11/23/24 19:58: Lactate 0.6 L 11/23/24 22:01: Urine Color Yellow, Urine Appearance Sl cloudy, Urine pH 5.5, Ur Specific [place] 1.010, Urine Protein Negative, Urine Glucose (UA) Negative, Urine Ketones 3+, Urine Blood 1+ A, Urine Nitrate Negative, Urine Bilirubin Negative, Urine Urobilinogen 0.2, Ur Leukocyte Esterase Negative I & O for Last 24 hours: Intake & Output 11/20/24 11/21/24 11/22/24 11/23/24 23:59 23:59 23:59 23:59 Weight 78.018 kg Constitutional Constitutional: no acute distress *Routine HEENT Exam Head: Present normocephalic Eye: Present EOMI and PERRL ENT: Present mucous membranes moist *Routine Neck Exam Neck: Present supple; Absent lymphadenopathy *Routine Respiratory Exam Respiratory: Present CTA bilaterally *Routine Cardiovascular Exam Cardiovascular: Present RRR *Routine Abdominal Exam Abdominal: Present soft, normoactive bowel sounds and tenderness Comments: tender in RUQ and RLQ *Routine Rectal Exam Rectal:: deferred *Routine Genitalia Exam Genitalia:: deferred *Routine Extremities Exam Extremities: Absent cyanosis, clubbing or edema *Routine Skin Exam Skin: Present warm; Absent rash *Routine Neurological Exam Neurological: Present alert and oriented X3 Assessment and Plan *Assessment and plan (1) Cholecystitis: Status: Acute Category: Medical Code(s): K81.9 - Cholecystitis, unspecified Plan Patient is a 28-year-old female with past medical history of obesity who presents to the hospital due to abdominal pain located in right abdomen, according to patient patient pain was initially epigastric and now it is radiating to right side of her abdomen from right upper quadrant to right lower quadrant. Patient mentions her pain feels like deep sensation, she also has associated nausea and vomiting-nonbloody. Patient denies hematuria, diarrhea constipation dysuria, denies being on monthly cycle. Denied fevers chills chest pain shortness of breath. Assessment and plan Abdominal pain suspect due to acalculous cholecystitis Start empirical Zosyn IV fluids N.p.o. for now Consult general surgery Pain control CT imaging personally interpreted demonstrate findings concerning for acalculous cholecystitis. Chronic medical conditions Diabetes mellitus on zep bound DVT prophylaxis-heparin
--- NOTE | 2024-11-23 22:25 | PC.NURSE ---
Patient arrived to floor via wheelchair from ED at 22:22.
[2024-11-23 22:32] VITALS: BP 144/92; PULSE 83; RESP 18; TEMP 36.8; O2SAT 100; BMI 34.2
[2024-11-23 22:32] LABS: Bacteria,Urine Trace /lpf
[2024-11-23] MEDS: 0.9 % SODIUM CHLORIDE 1000ML 1,000 ML 50 ML IV (22:37)
[2024-11-23 22:39] VITALS: BP 144/92; PULSE 83; RESP 18; TEMP 36.8; O2SAT 100
[2024-11-24] VITALS (19 sets, daily range): BP systolic 115–141; BP diastolic 66–85; PULSE 75–109; RESP 16–18; TEMP 36.7–36.9; O2SAT 92–100; BMI 34.2
[2024-11-24] MEDS: PIPERACILLIN/TAZO 3.375 GM in 0.9 % SODIUM CHLORIDE 50 ML IV ×3 (04:05→16:47)
[2024-11-24 06:55] LABS: Basophils % 0.3 % (0.1-2.0); Eosinophils # 0.1 Kmm3 (0.0-0.4); Eosinophils % 1.3 % (0.1-12.0); Hematocrit 37.2 % (37.0-47.0); Immature Granulocytes # 0.01 10^3uL; Immature Granulocytes % 0.1 %; Lymphocytes # 2.1 K/mm3 (0.7-4.5); Lymphocytes % 27.9 % (10-50); Mean Corpuscular HGB Conc 31.7 g/dL (31.8-35.4); Mean Corpuscular Hemoglobin 25.4 pg (27.0-31.2); Mean Corpuscular Volume 80.2 fl (81-99); Mean Platelet Volume 9.8 fl (7.4-10.4); Monocytes # 0.8 K/mm3 (0.1-1.0); Monocytes % 10.1 % (1.7-9.3); Neutrophils # 4.6 K/mm3 (1.8-7.8); Neutrophils % 60.3 % (37.0-80.0); Nucleated Red Blood Cells # 0 10^3/uL; Nucleated Red Blood Cells % 0 %; Platelet Count 210 K/mm3 (142-424); Red Blood Count 4.64 M/mm3 (4.20-5.40); Red Cell Distribution Width 13.7 % (11.5-17.5); Red Cell Distribution Width-SD 39.6 fL; White Blood Count 7.6 K/mm3 (4.8-10.8)
[2024-11-24 06:56] LABS: Chloride 106 mmol/L (98-107); Potassium 4.1 mmoL/L (3.5-5.1); Sodium 139 mmol/L (136-145)
[2024-11-24 06:59] LABS: Alanine Aminotransferase 35 U/L (12-78); Alkaline Phosphatase 85 U/L (38-126); Anion Gap 6.1 mEq/L (5-15); Aspartate Amino Transferase 33 U/L (14-36); Bilirubin,Total 0.8 mg/dl (0.2-1.3); Blood Urea Nitrogen 6 mg/dl (7-17); Calcium 8.7 mg/dl (8.4-10.2); Carbon Dioxide 31 mmol/L (22.0-30.0); Creatinine Clearance Estimated 147 mL/min (50-200); Estimated Glomerular Filt Rate 98 ml/min (>60); GFR (African American) 119 ML/MIN (>60); Glucose 88 mg/dl (74-100); Total Protein,Serum 6.5 g/dl (6.3-8.2)
[2024-11-24 07:40] LABS: Hemoglobin 12.1 g/dL (12.2-16.2)
[2024-11-24 08:05] LABS: Albumin Level 3.8 g/dl (3.5-5.0); Albumin/Globulin Ratio 1.4 (1.1-1.8); Globulin 2.7 g/dL (1.3-3.2)
--- NOTE | 2024-11-24 08:52 | EXP.SURG.CON ---
History of Present Illness *Admission Date: 11/23/24 *Reason for visit:: Cholecystitis *History of present illness: This is a 28-year-old female who presented to the emergency department yesterday evening with increasing right upper quadrant abdominal pain. Evaluation included CT scan that revealed changes consistent with possible cholecystitis. She feels better right now . She still has some right upper quadrant abdominal pain. Forwarded from emergency department evaluation/admission H&P: Patient is a 28-year-old female with past medical history of obesity who presents to the hospital due to abdominal pain located in right abdomen, according to patient patient pain was initially epigastric and now it is radiating to right side of her abdomen from right upper quadrant to right lower quadrant. Patient mentions her pain feels like deep sensation, she also has associated nausea and vomiting-nonbloody. Patient denies hematuria, diarrhea constipation dysuria, denies being on monthly cycle. Denied fevers chills chest pain shortness of breath. [facility] Disclaimer: The information contained in this section may have been updated after the patient was seen, as this information can be updated by other users. Medical History Anemia Chronic hypertension affecting Asthma Surgical History H/O tubal ligation History of delivery History of wisdom tooth extraction Hx of tonsillectomy Family History Grandmother Cancer Ovarian Father Hypertension Cancer Colon Social History Smoking Status: Never smoker alcohol intake: current alcohol intake frequency: holidays/special occasions only substance use type: denies use current occupational status: employed Travel in the last 8 weeks?: None Have you lived/traveled outside [place] in past 30 days?: No Contact w/someone who lives/traveled outside US past 30 days?: No Exposure to someone with infectious disease in past 14 days?: No Do you have a fever (greater than 100.4 F or 38 C)?: No Have you tested positive for COVID-19?: No Exposed to someone with COVID-19 in past 14 days?: No Do you have a sore throat?: No Do you have a cough?: No Do you have any weakness?: No Do you have any diarrhea?: No Are you experiencing any unusual bleeding?: No Do you have any muscle aches/pain?: No Do you have any abdominal pain?: No Are you experiencing loss of taste or smell?: No Meds Home Medications and Allergies Home Medications ?Medication ?Instructions ?Recorded ?Confirmed ?Type tirzepatide (weight loss) 10 10 mg SQ WEEKLY 06/11/24 11/23/24 History mg/0.5 mL subcutaneous pen injector (Zepbound) New Prescriptions to Start Prescriptions: Allergies Allergy/AdvReac Type Severity Reaction Status Date / Time No Known Allergies Allergy Verified 03/05/24 09:36 Exam (Inpt) Vital signs and Labs for Last 24 Hours: Temp Pulse Resp BP Pulse Ox O2 Del Method 98.2 F 92 H 16 115/73 96 Room Air 11/24/24 04:00 11/24/24 04:00 11/24/24 04:00 11/24/24 04:00 11/24/24 04:00 11/24/24 07:00 Laboratory Results - last 24 hr 11/23/24 18:49: WBC 10.1, RBC 5.17, Hgb 13.4, Hct 40.7, MCV 78.7 L, MCH 25.9 L, MCHC 32.9, RDW 13.4, Plt Count 284, MPV 9.8, Neut % (Auto) 71.8, Lymph % (Auto) 19.9, [place] % (Auto) 7.3, Eos % (Auto) 0.4, Baso % (Auto) 0.3, Neut # (Auto) 7.2, Lymph # (Auto) 2.0, [place] # (Auto) 0.7, Eos # (Auto) 0.0, Baso # (Auto) 0.0, Sodium 136, Potassium 3.9, Chloride 103, Carbon Dioxide 28, Anion Gap 8.9, BUN 9, Creatinine 0.70, Estimated Creat Clear 145, Estimated GFR 98, Est GFR ( Amer) 119, Glucose 93, Calcium 9.4, Total Bilirubin 0.8, AST 27, ALT 25, Alkaline Phosphatase 88, Total Protein 8.1, Albumin 4.6, Globulin 3.5 H, Albumin/Globulin Ratio 1.3, Lipase 108, Serum HCG, Qual Negative, HCV Ab REID w/Rflx PCR Qn Negative, HIV Ag/Ab Combo Qual Negative 11/23/24 19:58: Lactate 0.6 L 11/23/24 22:01: Urine Color Yellow, Urine Appearance Sl cloudy, Urine pH 5.5, Ur Specific [place] 1.010, Urine Protein Negative, Urine Glucose (UA) Negative, Urine Ketones 3+, Urine Blood 1+ A, Urine Nitrate Negative, Urine Bilirubin Negative, Urine Urobilinogen 0.2, Ur Leukocyte Esterase Negative, Urine RBC 10-20, Urine WBC 5-10, Ur Squamous Epith Cells 10-20, Urine Bacteria Trace 11/24/24 06:41: WBC 7.6, RBC 4.64, Hgb 12.1 L, Hct 37.2, MCV 80.2 L, MCH 25.4 L, MCHC 31.7 L, RDW 13.7, Plt Count 210 D, MPV 9.8, Neut % (Auto) 60.3, Lymph % (Auto) 27.9, [place] % (Auto) 10.1 H, Eos % (Auto) 1.3, Baso % (Auto) 0.3, Neut # (Auto) 4.6, Lymph # (Auto) 2.1, [place] # (Auto) 0.8, Eos # (Auto) 0.1, Baso # (Auto) 0.0, Sodium 139, Potassium 4.1, Chloride 106, Carbon Dioxide 31 H, Anion Gap 6.1, BUN 6 L D, Creatinine 0.70, Estimated Creat Clear 147, Estimated GFR 98, Est GFR ( Amer) 119, Glucose 88, Calcium 8.7, Total Bilirubin 0.8, AST 33, ALT 35 D, Alkaline Phosphatase 85, Total Protein 6.5, Albumin 3.8 D, Globulin 2.7, Albumin/Globulin Ratio 1.4 I & O for Labs for Last 24 Hours: Intake & Output 11/21/24 11/22/24 11/23/24 11/24/24 11:59 11:59 11:59 11:59 Intake Total 700 / 700 Output Total 200 / 200 Balance 500 / 500 Weight 174 lb 11.2 oz Constitutional: no acute distress Respiratory: Absent respiratory distress Cardiac: Absent Tachycardia GI: Present soft and tenderness Results Labs 11/24/24 06:41 11/24/24 06:41 Labs: Laboratory Results - last 24 hr 11/23/24 18:49: WBC 10.1, RBC 5.17, Hgb 13.4, Hct 40.7, MCV 78.7 L, MCH 25.9 L, MCHC 32.9, RDW 13.4, Plt Count 284, MPV 9.8, Neut % (Auto) 71.8, Lymph % (Auto) 19.9, [place] % (Auto) 7.3, Eos % (Auto) 0.4, Baso % (Auto) 0.3, Neut # (Auto) 7.2, Lymph # (Auto) 2.0, [place] # (Auto) 0.7, Eos # (Auto) 0.0, Baso # (Auto) 0.0, Sodium 136, Potassium 3.9, Chloride 103, Carbon Dioxide 28, Anion Gap 8.9, BUN 9, Creatinine 0.70, Estimated Creat Clear 145, Estimated GFR 98, Est GFR ( Amer) 119, Glucose 93, Calcium 9.4, Total Bilirubin 0.8, AST 27, ALT 25, Alkaline Phosphatase 88, Total Protein 8.1, Albumin 4.6, Globulin 3.5 H, Albumin/Globulin Ratio 1.3, Lipase 108, Serum HCG, Qual Negative, HCV Ab REID w/Rflx PCR Qn Negative, HIV Ag/Ab Combo Qual Negative 11/23/24 19:58: Lactate 0.6 L 11/23/24 22:01: Urine Color Yellow, Urine Appearance Sl cloudy, Urine pH 5.5, Ur Specific [place] 1.010, Urine Protein Negative, Urine Glucose (UA) Negative, Urine Ketones 3+, Urine Blood 1+ A, Urine Nitrate Negative, Urine Bilirubin Negative, Urine Urobilinogen 0.2, Ur Leukocyte Esterase Negative, Urine RBC 10-20, Urine WBC 5-10, Ur Squamous Epith Cells 10-20, Urine Bacteria Trace 11/24/24 06:41: WBC 7.6, RBC 4.64, Hgb 12.1 L, Hct 37.2, MCV 80.2 L, MCH 25.4 L, MCHC 31.7 L, RDW 13.7, Plt Count 210 D, MPV 9.8, Neut % (Auto) 60.3, Lymph % (Auto) 27.9, [place] % (Auto) 10.1 H, Eos % (Auto) 1.3, Baso % (Auto) 0.3, Neut # (Auto) 4.6, Lymph # (Auto) 2.1, [place] # (Auto) 0.8, Eos # (Auto) 0.1, Baso # (Auto) 0.0, Sodium 139, Potassium 4.1, Chloride 106, Carbon Dioxide 31 H, Anion Gap 6.1, BUN 6 L D, Creatinine 0.70, Estimated Creat Clear 147, Estimated GFR 98, Est GFR ( Amer) 119, Glucose 88, Calcium 8.7, Total Bilirubin 0.8, AST 33, ALT 35 D, Alkaline Phosphatase 85, Total Protein 6.5, Albumin 3.8 D, Globulin 2.7, Albumin/Globulin Ratio 1.4 Assessment and Plan *Assessment and plan (1) Cholecystitis: Status: Acute Category: Medical Code(s): K81.9 - Cholecystitis, unspecified Plan: Changes consistent with possible acalculous cholecystitis per CT scan. White blood cell count and LFTs normal. Some improvement in symptomatology over the last few hours. I have discussed the risks and benefits of cholecystectomy. The patient wishes to proceed and states that she prefers to have surgery during this hospitalization if possible. Laparoscopic cholecystectomy planned for later today I have discussed the risks and benefits including, but not limited to: Bleeding Infection Damage to surrounding tissue Inherent risks of sedation The patient agrees to proceed.
[2024-11-24] MEDS: MORPHINE 2MG/ML SYRINGE 2 MG IV ×4 (10:29→21:53)
--- NOTE | 2024-11-24 17:03 | P.PN_ITS ---
Subjective *Date: 11/24/24 *Time: 18:47 Interval history: Still having right upper quadrant pain. After discussion with surgeon, plan for cholecystectomy today. Will likely be late due to OR schedule. N.p.o. pending surgical intervention. Otherwise hemodynamically stable on room air Medical Exam Vital signs and Labs for Last 24 Hours: Vital Signs Temp Pulse Pulse Resp BP BP Pulse Ox 11/24/24 15:00 11/24/24 13:00 11/24/24 12:00 98.3 F 89 18 120/66 100 11/24/24 11:00 11/24/24 09:00 11/24/24 08:00 11/24/24 08:00 98.4 F 85 16 123/77 100 11/24/24 07:00 11/24/24 05:00 11/24/24 04:00 98.2 F 92 H 16 115/73 96 11/24/24 03:00 11/24/24 01:00 11/24/24 00:00 98.4 F 79 16 120/71 100 11/23/24 23:00 11/23/24 22:39 98.3 F 83 18 144/92 H 11/23/24 22:32 98.3 F 83 18 144/92 H 100 11/23/24 21:39 11/23/24 20:00 79 13 122/82 100 11/23/24 19:30 73 14 128/88 100 11/23/24 19:01 90 13 125/92 H 100 11/23/24 18:46 98.4 F 93 H 10 L 127/86 98 O2 Del Method 11/24/24 15:00 Room Air 11/24/24 13:00 Room Air 11/24/24 12:00 Room Air 11/24/24 11:00 Room Air 11/24/24 09:00 Room Air 11/24/24 08:00 Room Air 11/24/24 08:00 Room Air 11/24/24 07:00 Room Air 11/24/24 05:00 Room Air 11/24/24 04:00 Room Air 11/24/24 03:00 Room Air 11/24/24 01:00 Room Air 11/24/24 00:00 Room Air 11/23/24 23:00 Room Air 11/23/24 22:39 Room Air 11/23/24 22:32 Room Air 11/23/24 21:39 Room Air 11/23/24 20:00 11/23/24 19:30 11/23/24 19:01 11/23/24 18:46 Room Air Intake and Output 11/24/24 11/24/24 11/24/24 07:59 15:59 23:59 Intake Total 700 / 700 Output Total 200 / 400 200 / 400 Balance 500 / 300 -200 / 300 Intake: Intake, Total IV Amount 700 / 700 Lactated Ringers 1000ML 1,000 700 / 700 ml @ 999 mls/hr IV .Q1H1M ONE Rx#:[id number] Output: Output, Urine Amount 200 / 400 200 / 400 Other: Number of Unmeasured Voids 0 0 Weight 79.243 kg Patient Weight 11/24/24 23:59 Weight 79.243 kg Laboratory Results - last 24 hr 11/23/24 18:49: WBC 10.1, RBC 5.17, Hgb 13.4, Hct 40.7, MCV 78.7 L, MCH 25.9 L, MCHC 32.9, RDW 13.4, Plt Count 284, MPV 9.8, Neut % (Auto) 71.8, Lymph % (Auto) 19.9, [place] % (Auto) 7.3, Eos % (Auto) 0.4, Baso % (Auto) 0.3, Neut # (Auto) 7.2, Lymph # (Auto) 2.0, [place] # (Auto) 0.7, Eos # (Auto) 0.0, Baso # (Auto) 0.0, Sodium 136, Potassium 3.9, Chloride 103, Carbon Dioxide 28, Anion Gap 8.9, BUN 9, Creatinine 0.70, Estimated Creat Clear 145, Estimated GFR 98, Est GFR ( Amer) 119, Glucose 93, Calcium 9.4, Total Bilirubin 0.8, AST 27, ALT 25, Alkaline Phosphatase 88, Total Protein 8.1, Albumin 4.6, Globulin 3.5 H, Albumin/Globulin Ratio 1.3, Lipase 108, Serum HCG, Qual Negative, HCV Ab REID w/Rflx PCR Qn Negative, HIV Ag/Ab Combo Qual Negative 11/23/24 19:58: Lactate 0.6 L 11/23/24 22:01: Urine Color Yellow, Urine Appearance Sl cloudy, Urine pH 5.5, Ur Specific [place] 1.010, Urine Protein Negative, Urine Glucose (UA) Negative, Urine Ketones 3+, Urine Blood 1+ A, Urine Nitrate Negative, Urine Bilirubin Negative, Urine Urobilinogen 0.2, Ur Leukocyte Esterase Negative, Urine RBC 10- 20, Urine WBC 5-10, Ur Squamous Epith Cells 10-20, Urine Bacteria Trace 11/24/24 06:41: WBC 7.6, RBC 4.64, Hgb 12.1 L, Hct 37.2, MCV 80.2 L, MCH 25.4 L, MCHC 31.7 L, RDW 13.7, Plt Count 210 D, MPV 9.8, Neut % (Auto) 60.3, Lymph % (Auto) 27.9, [place] % (Auto) 10.1 H, Eos % (Auto) 1.3, Baso % (Auto) 0.3, Neut # (Auto) 4.6, Lymph # (Auto) 2.1, [place] # (Auto) 0.8, Eos # (Auto) 0.1, Baso # (Auto) 0.0, Sodium 139, Potassium 4.1, Chloride 106, Carbon Dioxide 31 H, Anion Gap 6.1, BUN 6 L D, Creatinine 0.70, Estimated Creat Clear 147, Estimated GFR 98, Est GFR ( Amer) 119, Glucose 88, Calcium 8.7, Total Bilirubin 0.8, AST 33, ALT 35 D, Alkaline Phosphatase 85, Total Protein 6.5, Albumin 3.8 D, Globulin 2.7, Albumin/Globulin Ratio 1.4 I & O for Labs for Last 24 Hours: Intake & Output 11/21/24 11/22/24 11/23/24 11/24/24 23:59 23:59 23:59 23:59 Intake Total 700 / 700 Output Total 400 / 400 Balance 300 / 300 Weight 79.243 kg 79.243 kg Constitutional: Present no acute distress, obese and cooperative Head: Present atraumatic and normocephalic Respiratory: Present normal respiratory effort; Absent rhonchi, wheezes or crackles Cardiac: Present Reg Rate and Rhythm GI: Present soft, tenderness (RUQ) and normal bowel sounds; Absent distention, guarding or rebound Extremities: Present normal inspection and full ROM Skin: Present intact; Absent erythema Neuro: Present Grossly Intact, alert, awake, oriented x 3 and moves all extremities Assessment and Plan *Assessment and plan (1) Cholecystitis: Status: Acute Category: Medical Code(s): K81.9 - Cholecystitis, unspecified Plan Patient is a 28-year-old female with past medical history of obesity who presents to the hospital due to abdominal pain located in right abdomen, according to patient patient pain was initially epigastric and now it is radiating to right side of her abdomen from right upper quadrant to right lower quadrant. Patient mentions her pain feels like deep sensation, she also has associated nausea and vomiting-nonbloody. Patient denies hematuria, diarrhea constipation dysuria, denies being on monthly cycle. Denied fevers chills chest pain shortness of breath. Going for surgery this evening. Will monitor overnight and advance diet. Anticipate discharge in the morning Cholecystitis - White count normal at 7.6. Liver enzymes normal with bilirubin 0.8, AST 33, ALT 35, alk phos 85. Kidney function normal with BUN 6, creatinine 0.7 - Discussed case with surgery, plan for cholecystectomy today. Will likely be late so will monitor overnight and advance diet. If does well overnight anticipate discharge in the morning - Repeat CBC, CMP, magnesium ordered for the morning - Continue pain control with hydrocodone 5 mg as needed every 4 hours. Monitor for toxicity. Discontinue IV fluids. Initially on Zosyn. Will continue through surgery. Discontinue thereafter - continue Phenergan 25 mg IV every 6 hours as needed for nausea or vomiting Recommend discontinuing Zepbound Full code Clear liquids after surgery
[2024-11-24] MEDS: LIDOCAINE 1% 20ML MDV 20 ML (17:59)
--- NOTE | 2024-11-24 18:54 | P.OP_ITS ---
Date of procedure: 11/24/24 Pre-op Diagnosis:: Acute calculus cholecystitis Post-op Diagnosis:: Same Procedure performed:: Laparoscopic cholecystectomy Surgeon:: Vinod Palacio MD Anesthesia: GETIsabela Estimated blood loss (mL): 15 Operative findings:: Severe gallbladder distention Gallbladder wall thickening Severe pericholecystic fat stranding Severe infundibular thickening Serosal weeping Operative note:: After informed consent was obtained, the patient was taken to the operating room and placed in the supine position. General anesthesia was induced and the abdomen was prepped and draped in a sterile fashion. After infiltration with lo anali anesthetic an supraumbilical incision was made. A Veress needle was placed in position. The abdomen was insufflated. A 5 mm optical trocar was placed in position. Under direct visualization, a 12 mm trocar was placed in the subxiphoid position and 2 additional 5 mm trocars were placed in the right upper quadrant. The gallbladder was elevated up and over the liver margin. An otomy was made along the dome of the gallbladder utilizing harmonic siva. A large volume of bilious fluid was aspirated via suction to decompress the gallbladder. The tissue around the cystic duct was carefully dissected. 3 clips were placed proximally and the duct was transected with harmonic siva. Harmonic siva were then utilized to dissect the gallbladder away from the liver margin with careful attention to the control of the cystic artery. The gallbladder was placed in a retrieval bag and removed through the subxiphoid trocar site. The right upper quadrant was thoroughly irrigated. No active bleeding or bile leak was noted. Fascia at the subxiphoid trocar site was reapproximated utilizing the NeoClose device. The remaining trocars were removed. All wounds were irrigated and skin was closed with 4-0 Monocryl in an interrupted mattress fashion to facilitate hemostasis. Dressings were applied. The patient's anesthetic agents were reversed and extubation was completed prior to transfer to recovery in stable condition. Condition: stable Disposition: PACU Specimens:: Gallbladder Complications:: No immediate
--- NOTE | 2024-11-24 19:08 | EXP.ANES.I ---
[facility] Anesthesia Record Part I Anesthesia Record I Intake, IV Amount: 600 Hydration: Adequate Estimated blood loss (mL): 10 Urine output (mL): 0 Blood Pressure: 133/85 SaO2: 94 Pulse Rate: 99 Airway Patency: Patent Respiratory Rate: 18 Temperature: 98.2 F Patient is:: Awake and Stable Stable to PACU at:: 17:10
--- NOTE | 2024-11-24 19:28 | PC.NURSE ---
Patient arrived to floor via stretcher from surgery at 19:27.
[2024-11-24] MEDS: 0.9 % SODIUM CHLORIDE 1000ML 1,000 ML 50 ML IV (19:45)
[2024-11-24] MEDS: LACTATED RINGERS 1000ML 1,000 ML 25 ML IV (20:37)
[2024-11-24] MEDS: CEFAZOLIN 1GM VIAL (20:37)
[2024-11-25 00:30] VITALS: BP 113/68; PULSE 94; RESP 16; TEMP 36.6; O2SAT 93
[2024-11-25 01:30] VITALS: BP 123/73; PULSE 85; RESP 16; O2SAT 93
[2024-11-25] MEDS: MORPHINE 2MG/ML SYRINGE 2 MG IV (01:32)
[2024-11-25 02:30] VITALS: BP 116/70; PULSE 98; RESP 16; TEMP 36.6; O2SAT 95
[2024-11-25 04:00] VITALS: BP 127/74; PULSE 92; RESP 16; TEMP 36.8; O2SAT 94; BMI 34.9
--- NOTE | 2024-11-25 05:23 | PC.NURSE ---
Pt. is alert and orientated x 4.Pt. is on room air. Pt. is SP cholecystectomy. Pt. has had abdominal pain. Pain upper abdome.n. Pt. rates 8-02/23. Pt. medicated for pain with Morphine IV. post pain assessment pain 07/26. Pt. has 4 LAP site one at the umbilicus and 3 in the abdomen. dressings clean, dry and intact. Pt. sleeping off and on . IV fluids infusing. pt. tolerating clear liquids. Personal items and call miguel in reach.
[2024-11-25 06:49] LABS: Basophils % 0.2 % (0.1-2.0); Hematocrit 36.1 % (37.0-47.0); Hemoglobin 11.7 g/dL (12.2-16.2); Immature Granulocytes # 0.02 10^3uL; Immature Granulocytes % 0.3 %; Lymphocytes # 1.4 K/mm3 (0.7-4.5); Lymphocytes % 21.7 % (10-50); Mean Corpuscular HGB Conc 32.4 g/dL (31.8-35.4); Mean Corpuscular Hemoglobin 26.1 pg (27.0-31.2); Mean Corpuscular Volume 80.4 fl (81-99); Monocytes # 0.7 K/mm3 (0.1-1.0); Monocytes % 9.9 % (1.7-9.3); Neutrophils # 4.5 K/mm3 (1.8-7.8); Neutrophils % 67.9 % (37.0-80.0); Nucleated Red Blood Cells # 0 10^3/uL; Nucleated Red Blood Cells % 0 %; Platelet Count 233 K/mm3 (142-424); Red Blood Count 4.49 M/mm3 (4.20-5.40); Red Cell Distribution Width 13.6 % (11.5-17.5); Red Cell Distribution Width-SD 39.8 fL; White Blood Count 6.6 K/mm3 (4.8-10.8)
--- NOTE | 2024-11-25 06:53 | P.PN_ITS ---
Subjective Patient reports: feels better Exam Data for Last 24 hours Vital signs and Labs for Last 24 Hours: Temp Pulse Resp BP Pulse Ox O2 Del Method 98.2 F 92 H 16 127/74 94 L Room Air 11/25/24 04:00 11/25/24 04:00 11/25/24 04:00 11/25/24 04:00 11/25/24 04:00 11/25/24 05:00 Laboratory Results - last 24 hr 11/24/24 06:41: WBC 7.6, RBC 4.64, Hgb 12.1 L, Hct 37.2, MCV 80.2 L, MCH 25.4 L, MCHC 31.7 L, RDW 13.7, Plt Count 210 D, MPV 9.8, Neut % (Auto) 60.3, Lymph % (Auto) 27.9, [place] % (Auto) 10.1 H, Eos % (Auto) 1.3, Baso % (Auto) 0.3, Neut # (Auto) 4.6, Lymph # (Auto) 2.1, [place] # (Auto) 0.8, Eos # (Auto) 0.1, Baso # (Auto) 0.0, Sodium 139, Potassium 4.1, Chloride 106, Carbon Dioxide 31 H, Anion Gap 6.1, BUN 6 L D, Creatinine 0.70, Estimated Creat Clear 147, Estimated GFR 98, Est GFR ( Amer) 119, Glucose 88, Calcium 8.7, Total Bilirubin 0.8, AST 33, ALT 35 D, Alkaline Phosphatase 85, Total Protein 6.5, Albumin 3.8 D, Globulin 2.7, Albumin/Globulin Ratio 1.4 I & O for Last 24 hours: Intake & Output 11/22/24 11/23/24 11/24/24 11/25/24 11:59 11:59 11:59 11:59 Intake Total 700 / 700 750 / 750 Output Total 300 / 400 550 / 550 Balance 400 / 300 200 / 200 Weight 174 lb 11.2 oz 178 lb 4.8 oz Constitutional Constitutional: no acute distress *Routine Respiratory Exam Respiratory: Absent respiratory distress *Routine Cardiovascular Exam Cardiovascular: Absent tachycardia *Routine Abdominal Exam Comments: Dressings intact. No cellulitis. Progress Note: A&P Assessment and plan (1) Acute cholecystitis due to biliary calculus: Status: Acute Assessment and plan: Overall, doing fairly well status post laparoscopic cholecystectomy. Follow-up a.m. labs Likely discharge home with close outpatient follow-up (pending a.m. labs)
[2024-11-25 06:55] LABS: Albumin Level 3.6 g/dl (3.5-5.0); Chloride 106 mmol/L (98-107)
[2024-11-25 06:56] LABS: Sodium 138 mmol/L (136-145)
[2024-11-25 06:58] LABS: Alanine Aminotransferase 159 U/L (12-78); Albumin/Globulin Ratio 1.3 (1.1-1.8); Alkaline Phosphatase 129 U/L (38-126); Aspartate Amino Transferase 96 U/L (14-36); Bilirubin,Total 0.4 mg/dl (0.2-1.3); Blood Urea Nitrogen 5 mg/dl (7-17); Carbon Dioxide 28 mmol/L (22.0-30.0); Creatinine Clearance Estimated 147 mL/min (50-200); Estimated Glomerular Filt Rate 98 ml/min (>60); GFR (African American) 119 ML/MIN (>60); Globulin 2.8 g/dL (1.3-3.2); Total Protein,Serum 6.4 g/dl (6.3-8.2)
[2024-11-25 06:59] LABS: Calcium 9.7 mg/dl (8.4-10.2); Glucose 86 mg/dl (74-100); Magnesium 1.7 mg/dl (1.6-2.3)
[2024-11-25 08:00] VITALS: BP 130/67; PULSE 84; RESP 16; TEMP 36.6; O2SAT 98
--- NOTE | 2024-11-25 08:22 | P.PNANES_ITS ---
[facility] Anesthesia Record Part II Anesthesia Record Part II Discharge Time: 19:30 Destination: Second Floor PACU nurse assessment reviewed?: Yes Patient Condition:: Good Anesthesia Complications:: None Swallowing reflex intact?: Yes Airway Patency: Patent Cyanosis?: No Blood Pressure: 131/71 SaO2: 99 Respiratory Rate: 18 Pulse Rate: 103 Temperature: 98.2 F Mental Status: Alert & Oriented Pain level:: 0 Nausea and/or vomitting:: None Intake, IV Amount: 1,500 Hydration: Adequate
[2024-11-25 08:23] VITALS: BP 131/71; PULSE 103; RESP 18; TEMP 36.8; O2SAT 99
--- NOTE | 2024-11-25 08:55 | P.DS_ITS ---
<Statement entered by Akbar Castillo MD - 11/25/24 15:46> Rounded on patient after nurse practitioner. Personally examined and interviewed patient. Agree with exam findings and care plan as documented. General Admission date:: 11/23/24 Discharge date: 11/25/24 HPI HPI HPI: This is a 28-year-old female who presented to the emergency department yesterday evening with increasing right upper quadrant abdominal pain. Evaluation included CT scan that revealed changes consistent with possible cholecystitis. She feels better right now . She still has some right upper quadrant abdominal pain. Forwarded from emergency department evaluation/admission H&P: Patient is a 28-year-old female with past medical history of obesity who presents to the hospital due to abdominal pain located in right abdomen, according to patient patient pain was initially epigastric and now it is radiating to right side of her abdomen from right upper quadrant to right lower quadrant. Patient mentions her pain feels like deep sensation, she also has associated nausea and vomiting-nonbloody. Patient denies hematuria, diarrhea constipation dysuria, denies being on monthly cycle. Denied fevers chills chest pain shortness of breath. Hospital Course Hospital Course Hospital Course: Ms. Peterson is a 28-year-old female with a primary medical history of obesity. She came into the emergency department with right abdominal pain, and vomiting. She was worked up by the emergency room department and found to have cholecystitis, she was admitted for surgery and further medical management. She was started empirically on Zosyn, given IV fluids for hydration, and general surgery was consulted. Patient proceeded with a laparoscopic cholecystectomy performed by Dr. Palacio. Lab work was monitored during admission and was unremarkable, patient remained hemodynamically stable, and pain was managed with morphine 2 mg IV as needed and Nebo 5/325 mg as needed. Patient states she feels much better today, pain is manageable with pain medication, she is eating a regular diet without issue, she is tolerating p.o. fluids. Physical assessment WNL. Patient will be discharged home with pain meds and close outpatient follow-up with general surgery. #Acute cholecystitis #Status post laparoscopic cholecystectomy - Patient doing well from laparoscopic cholecystectomy on 11/24. - WBC is unremarkable at 6.6. Hemoglobin is stable at 11.7. Kidney function is at baseline with a creat of 0.7. And no electrolyte abnormalities were noted - Tolerating p.o. intake without problems. -Follow-up appointment made with Dr. Palacio. ?Postsurgical complications discussed with patient, patient denies questions. #Obesity -Patient takes Zepbound weekly, discussed with patient to hold for 1 week and then may resume. Total time spent on discharge: 28 minutes on chart review, counseling, documentation, and direct care with patient. Exam Data for Last 24 hours Vital signs and Labs for Last 24 Hours: Temp Pulse Resp BP Pulse Ox O2 Del Method 97.9 F 84 18 130/67 98 Room Air 11/25/24 08:00 11/25/24 08:00 11/25/24 08:23 11/25/24 08:00 11/25/24 08:00 11/25/24 08:00 Laboratory Results - last 24 hr 11/25/24 06:15: WBC 6.6, RBC 4.49, Hgb 11.7 L, Hct 36.1 L, MCV 80.4 L, MCH 26.1 L, MCHC 32.4, RDW 13.6, Plt Count 233, MPV 10.0, Neut % (Auto) 67.9, Lymph % (Auto) 21.7, Ramsey % (Auto) 9.9 H, Eos % (Auto) 0.0 L, Baso % (Auto) 0.2, Neut # (Auto) 4.5, Lymph # (Auto) 1.4, Ramsey # (Auto) 0.7, Eos # (Auto) 0.0, Baso # (Auto) 0.0, Sodium 138, Potassium 4.0, Chloride 106, Carbon Dioxide 28, Anion Gap 8.0, BUN 5 L, Creatinine 0.70, Estimated Creat Clear 147, Estimated GFR 98, Est GFR ( Amer) 119, Glucose 86, Calcium 9.7, Magnesium 1.7, Total Bilirubin 0.4, AST 96 H D, ALT 159 H D, Alkaline Phosphatase 129 H, Total Protein 6.4, Albumin 3.6, Globulin 2.8, Albumin/Globulin Ratio 1.3 I & O for Last 24 hours: Intake & Output 11/22/24 11/23/24 11/24/24 11/25/24 23:59 23:59 23:59 23:59 Intake Total 1300 / 1450 1650 / 1650 Output Total 400 / 400 450 / 450 Balance 900 / 1050 1200 / 1200 Weight 79.243 kg 79.243 kg 80.876 kg Constitutional Constitutional: no acute distress *Routine HEENT Exam Head: Present normocephalic ENT: Present mucous membranes moist *Routine Neck Exam Neck: Present full ROM *Routine Respiratory Exam Respiratory: Present CTA bilaterally and symmetric chest movement *Routine Cardiovascular Exam Cardiovascular: Present RRR *Routine Abdominal Exam Abdominal: Present soft, normoactive bowel sounds and tenderness; Absent distended or firm Comments: Surgical dressing x 4 on abdomen, CDI *Routine Extremities Exam Extremities: Present full ROM and normal capillary refill *Routine Skin Exam Skin: Present intact *Routine Neurological Exam Neurological: Present alert, oriented X3 and normal speech Results Data Completed and Pending Labs on day of discharge: Labs from last 24 hours 11/25/24 06:15 WBC 6.6 RBC 4.49 Hgb 11.7 L Hct 36.1 L MCV 80.4 L MCH 26.1 L MCHC 32.4 RDW 13.6 Plt Count 233 MPV 10.0 Neut % (Auto) 67.9 Lymph % (Auto) 21.7 Ramsey % (Auto) 9.9 H Eos % (Auto) 0.0 L Baso % (Auto) 0.2 Neut # (Auto) 4.5 Lymph # (Auto) 1.4 Ramsey # (Auto) 0.7 Eos # (Auto) 0.0 Baso # (Auto) 0.0 Sodium 138 Potassium 4.0 Chloride 106 Carbon Dioxide 28 Anion Gap 8.0 BUN 5 L Creatinine 0.70 Estimated Creat Clear 147 Estimated GFR 98 Est GFR ( Amer) 119 Glucose 86 Calcium 9.7 Magnesium 1.7 Total Bilirubin 0.4 AST 96 H D ALT 159 H D Alkaline Phosphatase 129 H Total Protein 6.4 Albumin 3.6 Globulin 2.8 Albumin/Globulin Ratio 1.3 DS: Diagnosis Discharge Diagnosis (1) Acute cholecystitis due to biliary calculus: Status: Acute Code(s): K80.00 - Calculus of gallbladder with acute cholecystitis without obstruction (2) S/P laparoscopic cholecystectomy: Status: Acute Code(s): Z90.49 - Acquired absence of other specified parts of digestive tract Meds Home Medications and Allergies Home Medications ?Medication ?Instructions ?Recorded ?Confirmed ?Type tirzepatide (weight loss) 10 10 mg SQ WEEKLY 06/11/24 11/23/24 History mg/0.5 mL subcutaneous pen injector (Zepbound) hydrocodone 5 mg-acetaminophen 325 1 tab PO Q6H PRN po st-op pain #17 11/24/24 Rx mg tablet tabs New Prescriptions to Start Prescriptions: hydrocodone-acetaminophen Vinod Palacio Allergies Allergy/AdvReac Type Severity Reaction Status Date / Time No Known Allergies Allergy Verified 03/05/24 09:36 Discharge Plan Disposition Patient Disposition: Home, Self-Care Condition: Fair Follow up Plan Follow up with: Debbie Obrien APRN [Primary Care Provider, Medical] - 12/09/24 8:30 am Referral Note: 2 weeks Vniod Palacio MD [Staff Physician, General Surgery] - 12/08/24 9:30 am Prescriptions/Medication Reconciliation: New hydrocodone-acetaminophen 5-325 mg tablet 1 tab PO Q6H PRN (Reason: post-op pain) Qty: 17 0RF Continued Zepbound 10 mg/0.5 mL pen injector 10 mg SQ WEEKLY Patient Comments: INJECT 1 SYRINGE SUBCUTANEOUSLY ONCE A WEEK Problem Reconciliation Problems Reviewed?: Yes Patient Discharge Instructions ACTIVITY: Ambulate as tolerated and No heavy lifting DIET: advance to your usual diet Additional Instructions: Remove dressings and shower after 48 hours Leave Steri-Strips intact Stand Alone Forms: [facility] Work Release Patient Instructions: DI for Surgical Site Infection, DI for Cholecystitis, DI for Laparoscopic Cholecystectomy Print Language: Bengali Providers Primary Care Provider: Debbie Obrien Admit Provider: Akbar Castillo Attending Provider: Akbar Castillo
[2024-11-25] MEDS: HYDROCODONE/APAP 5/325 MG TABLET 1 TAB PO (10:06)
--- NOTE | 2024-11-26 10:29 | SW/DCPLANNER ---
Spoke with patient on the phone. Patient stated that she is doing well. Patient stated that she is aware of her upcoming appointments. Patient stated that she is going to cancel the one with her PCP due to already having one scheduled before hand. Patient stated that she was able to get her new medicine from clinic pharmacy and that she done the meds to bed. Patient stated that she has no concerns or questions at this time. Mohit Campbell
== END 2024-11-25 13:10 | disposition home or self-care (01) ==
LOC: ER 19:05 → 2ND 21:38
PROVIDERS: Internal Medicine; Surgery; Admitting Provider Internal Medicine Adolescent Medicine; Emergency Provider Emergency Medicine; PCP Nurse Practitioner Family; Visit Provider Internal Medicine Adolescent Medicine
PROC: 0FT44ZZ Resection of Gallbladder, Percutaneous Endoscopic Approach (ICD-10-PCS; CPT 47562; principal; 2024-11-24 17:30)
DX: K81.0 Acute cholecystitis (principal); D64.9 Anemia, unspecified; Z79.85 Long-term (current) use of injectable non-insulin antidiabetic drugs
CPT/HCPCS: 47562; 96365; 96366; 36415; 74177; 80053; 81001; 83605; 83690; 83735; 84703; 85025; 86803; 87389; 96374; G0378; J1100; J1200; J2003; J2250; J2270; J2405; J2543; J2704; J3010; J7030; J7120; Q9967